=== PATIENT | male | born 1980 | race Caucasian/White ===

== ENCOUNTER 2016-09-04 17:08 | Observation (INO) | payer OTHER ==
[2016-09-04] MEDS ORDERED: TORAdol 30 mg Injection IV ONE (17:38)
[2016-09-04] MEDS ORDERED: Sodium Chloride 0.9% 1000 ML 1,000 ML IV STA (17:38)
--- NOTE | 2016-09-04 17:43 | ERPHSYRPT ---
- History of Present Illness Time Seen by Provider: 09/04/16 17:33 Historian: patient Exam Limitations: no limitations Patient Subjective Stated Complaint: PT COMPLAINS OF TESTTILCE PAIN AND SWELLING X 3 WEEKS STATES HE NOTICED SWELLING IN ON TESTICLE THEN SWELLING IN BOTH STATES HE DID HAVE SOME BLOOD IN HI URINE AT SOME POINT BUT DENIES ANY RECENTLY STATES NOW HE NOTICES BLOOD IN HIS SEMEN. PT DENIES ANY DISCHARGE STATES PAIN DOES RADIATE UP INTO HIS ABDOMEN. PT STATES HE DOES HAVE SOME NASUEA AT TIME. Triage Nursing Assessment: PT ALERT WARM AND DRY RESP EASY NONLABORED PT AMBUALATED TO ROOM WITHOUT DIFFICULTY. NO OBVIOUS SWELLING NOTED TO TESTICLES OR BLEEDING DURING EXAM. Physician History: 36-year-old white male arrives with complaint of pain in bilateral groin and testicle symptoms going on for 2-3 weeks he started with swelling and one testicle would then it began to involve the other testicle he described his pain as burning he states he has had some blood in his urine which has cleared he denies any discharge. Patient is not having nausea no vomiting he does have some dysuria Past medical history patient denies past surgical history patient denies Timing/Duration: week(s) (3 weeks) Activities at Onset: none Quality: burning Abdominal Pain Onset Location: other (bilateral groin and bilateral testicles) Severity of Pain-Max: moderate Severity of Pain-Current: moderate Modifying Factors: Improves With: nothing Associated Symptoms: testicular pain, other (bilateral groin pain), No back, No chest pain, No diaphoresis, No diarrhea, No fever/chills, No fatigue, No headache, No heartburn, No loss of appetite, No nausea, No neck pain, No rash, No shortness of breath, No syncope, No vomiting, No weakness Previous symptoms: no prior history Allergies/Adverse Reactions: No Known Drug Allergies Allergy (Unverified 09/04/16 17:17) Home Medications: No Reportable Medications [No Reported Medications] 09/04/16 [History] Hx Tetanus, Diphtheria Vaccination/Date Given: Yes Hx Influenza Vaccination/Date Given: No Hx Pneumococcal Vaccination/Date Given: No Immunizations Up to Date: Yes - Review of Systems Constitutional: No Fever, No Chills Eyes: No Symptoms Ears, Nose, & Throat: No Symptoms Respiratory: No Cough, No Dyspnea Cardiac: No Chest Pain, No Edema, No Syncope Abdominal/Gastrointestinal: Other (Bilateral groin pain), No Nausea, No Vomiting , No Diarrhea Genitourinary Symptoms: Dysuria, Hematuria (hematuria which has cleared up), No Frequency, No Hesitancy Musculoskeletal: No Back Pain, No Neck Pain Skin: No Rash Neurological: No Dizziness, No Focal Weakness, No Sensory Changes Psychological: No Symptoms Endocrine: No Symptoms All Other Systems: Reviewed and Negative - Past Medical History Pertinent Past Medical History: No - Past Surgical History Past Surgical History: No - Social History Smoking Status: Current every day smoker How long have you smoked: 16 YEARS Exposure to second hand smoke: Yes Drug Use: none Patient Lives Alone: No - Nursing Vital Signs Nursing Vital Signs: Initial Vital Signs Temperature 98.2 F Pulse Rate 88 Respiratory Rate 18 Blood Pressure [] 114/68 Pain Intensity 8 - Physical Exam General Appearance: mild distress Eye Exam: PERRL/EOMI, eyes nml inspection Ears, Nose, Throat Exam: normal ENT inspection, pharynx normal, moist mucous membranes Neck Exam: normal inspection, non-tender, supple, full range of motion Respiratory Exam: normal breath sounds, lungs clear, No respiratory distress Cardiovascular Exam: regular rate/rhythm, normal heart sounds Gastrointestinal/Abdomen Exam: normal bowel sounds, other (abdomen tender with palpation bilateral groin), No distention, No mass, No guarding Male Genitalia Exam: other (Testicles descended bilaterally tender with palpation superior to the testicles bilaterally) Back Exam: normal inspection, normal range of motion, No CVA tenderness, No vertebral tenderness Extremity Exam: normal inspection, normal range of motion, pelvis stable Neurologic Exam: alert, oriented x 3, cooperative, normal mood/affect, nml cerebellar function, sensation nml, No motor deficits Skin Exam: normal color, warm, dry SpO2 Interpretation: normal (98%) SpO2: 98 Oxygen Delivery: Room Air - Radiology Ultrasound Exam Scrotal Ultrasound: Other (discussed with photonics engineering technologist , severe orchitis and epididymitis bilaterally) Ordered Tests: Active Orders 24 hr Category Date Time Status IV Insertion STAT Care 09/04/16 17:38 Active TESTICLE [US] Stat Exams 09/04/16 17:55 Taken CBC W DIFF Stat Lab 09/04/16 17:45 Completed CMP Stat Lab 09/04/16 17:45 Completed CULTURE,URINE Stat Lab 09/04/16 19:22 Ordered UA W/ MICROSCOPIC Stat Lab 09/04/16 17:45 Completed Transfer Order Routine Transfer 09/04/16 20:32 Ordered Medication Summary Discontinued Medications Generic Name Dose Route Start Last Admin Trade Name Vahid PRN Reason Stop Dose Admin Sodium Chloride 1,000 mls @ 999 mls/hr 09/04/16 17:38 09/04/16 18:01 Sodium Chloride 0.9% 1000 Ml IV 09/04/16 18:38 999 mls/hr .Q1H1M STA Administration Sodium Chloride Confirm 09/04/16 17:58 Sodium Chloride 0.9% 1000 Ml Administered 09/04/16 17:59 Dose 1,000 mls @ ud .ROUTE .STK-MED ONE Ceftriaxone Sodium/Dextrose 1 g in 50 mls @ 100 mls/hr 09/04/16 19:45 20:01 Rocephin 1 Gm-D5w 50 Ml Bag IV 09/04/16 20:14 100 mls/hr STAT ONE Administration Ceftriaxone Sodium/Dextrose Confirm 09/04/16 20:00 Rocephin 1 Gm-D5w 50 Ml Bag Administered 09/04/16 20:01 Dose 1 g in 50 mls @ ud IV .STK-MED ONE Ketorolac Tromethamine 30 mg 09/04/16 17:38 09/04/16 18:01 Toradol 30 Mg Injection IV 09/04/16 17:39 30 mg STAT ONE Administration Ketorolac Tromethamine Confirm 09/04/16 17:58 Toradol 30 Mg Injection Administered 09/04/16 17:59 Dose 30 mg .ROUTE .STK-MED ONE Morphine Sulfate 4 mg 09/04/16 20:20 09/04/16 20:27 Morphine Sulfate 4 Mg Inj IV 09/04/16 20:21 4 mg STAT ONE Administration Morphine Sulfate Confirm 09/04/16 20:23 Morphine Sulfate 4 Mg Inj Administered 09/04/16 20:24 Dose 4 mg .ROUTE .STK-MED ONE Lab/Rad Data: Laboratory Result Diagrams 09/04/16 17:45 09/04/16 17:45 Laboratory Results 09/04/16 09/04/16 09/04/16 Range/Units 17:45 17:45 17:45 WBC 9.9 (4.0-10.5) K/mm3 RBC 4.38 (4.1-5.6) M/mm3 Hgb 13.5 (12.5-18.0) gm/dl Hct 40.2 L (42-50) % MCV 91.8 (78-100) fl MCH 30.8 (26-32) pg MCHC 33.6 (32-36) g/dl RDW 13.7 (11.5-14.0) % Plt Count 236 (150-450) K/mm3 MPV 10.3 H (6-9.5) fl Gran % 67.9 H (36.0-66.0) % Lymphocytes % 22.8 L (24.0-44.0) % Monocytes % 8.0 (0.0-12.0) % Eosinophils % 1.2 (0.00-5.0) % Basophils % 0.1 (0.0-0.4) % Basophils # 0.01 (0-0.4) Sodium 142 (136-145) mEq/L Potassium 3.9 (3.5-5.1) mEq/L Chloride 106 (98-107) mEq/L Carbon Dioxide 27.1 (21-32) mEq/L Anion Gap 13.1 (5-15) MEQ/L BUN 8 L (9-20) mg/dL Creatinine 0.72 (0.55-1.30) mg/dl Estimated GFR > 60 ML/MIN Glucose 113 H (70-110) MG/DL Calcium 9.0 (8.5-10.1) mg/dL Total Bilirubin 0.2 (0.2-1.0) mg/dL AST 14 L (15-37) U/L ALT 18 (12-78) U/L Alkaline Phosphatase 101 (46-116) U/L Serum Total Protein 7.3 (6.4-8.2) gm/dL Albumin 3.4 (3.4-5.0) g/dL Ur Collection Type CLEAN CATCH Urine Color YELLOW (YELLOW) Urine Appearance SLIGHTLY CLOUDY (CLEAR) Urine pH 7.0 (5-6) Ur Specific Bradford 1.020 (1.005-1.025) Urine Protein NEGATIVE (Negative) Urine Glucose (UA) NEGATIVE (NEGATIVE) mg/dL Urine Ketones NEGATIVE (NEGATIVE) Urine Nitrite POSITIVE (NEGATIVE) Urine Bilirubin NEGATIVE (NEGATIVE) Urine Urobilinogen 0.2 (0-1) mg/dL Urine WBC (Auto) SMALL (NEGATIVE) Urine RBC (Auto) NEGATIVE (0-5) Jelani/ul Urine Microscopic RBC 0-2 (0-2) /HPF Urine Microscopic WBC 15-25 (0-5) /HPF Ur Epithelial Cells MODERATE (FEW) /HPF Specimen Received [id number] - Progress Progress: improved Progress Note: 09/04/16 19:24 Patient with orchitis and epididymitis on ultrasound. Radiology techs states this is quite an impressive case Patient with mild improvement with Toradol. Will give patient antibiotics discuss case with Dr. garcía for possible admission 09/04/16 19:45 I discussed case with Dr. garcía for possible admission. She would like the room to read the ultrasound on this patient. 09/04/16 20:18 Scrotal ultrasound read by the virtual radiology: Impression bilateral epididymorchitis. 09/04/16 20:30 Case is discussed with Dr. garcía Will place patient on observation IV fluids Rocephin. - Departure Time of Disposition: 20:31 Departure Disposition: Observation Clinical Impression: bilateral testicle pain, Orchitis, Epididymitis Condition: Fair Critical Care Time: No Referrals: YUMIKO GARCÍA [Primary Care Provider] -
[2016-09-04 17:56] LABS: BASOPHIL % 0.1 % (0.0-0.4); Eosinophil % 1.2 % (0.00-5.0); Granulocytes % 67.9 % (36.0-66.0); Lymphocytes % 22.8 % (24.0-44.0); Mean Cell Volume 91.8 fl (78-100); Mean Corpuscular Hemoglobin 30.8 pg (26-32); Mean Platelet Volume 10.3 fl (6-9.5); Platelet Count 236 K/mm3 (150-450); Red Blood Count 4.38 M/mm3 (4.1-5.6); Red Cell Distribution Width 13.7 % (11.5-14.0); White Blood Count 9.9 K/mm3 (4.0-10.5)
[2016-09-04] MEDS ORDERED: Sodium Chloride 0.9% 1000 ML 1,000 ML ONE (17:58)
[2016-09-04] MEDS ORDERED: TORAdol 30 mg Injection ONE (17:58)
[2016-09-04 18:21] LABS: ALBUMIN 3.4 g/dL (3.4-5.0); ALKALINE PHOSPHATASE 101 U/L (46-116); ANION GAP 13.1 MEQ/L (5-15); BILIRUBIN,TOTAL 0.2 mg/dL (0.2-1.0); BLOOD UREA NITROGEN 8 mg/dL (9-20); CHLORIDE 106 mEq/L (98-107); Carbon Dioxide 27.1 mEq/L (21-32); Glucose 113 MG/DL (70-110); Potassium 3.9 mEq/L (3.5-5.1); SGOT/AST 14 U/L (15-37); SGPT/ALT 18 U/L (12-78); SODIUM 142 mEq/L (136-145); Total Protein 7.3 gm/dL (6.4-8.2)
[2016-09-04 19:06] LABS: Collection Type CLEAN CATCH
[2016-09-04 19:07] LABS: COMPLETE URINE MICROSCOPIC? YES; Epithelial Cells MODERATE /HPF (FEW); WBC 15-25 /HPF (0-5)
[2016-09-04] MEDS ORDERED: ROCEPHIN 1 Gm-D5w 50 ml Bag** 1 G/50 ML IVPB IV ONE ×2 (19:45→20:00)
[2016-09-04] MEDS ORDERED: MORPHINE SULFATE 4 MG INJ IV ONE (20:20)
[2016-09-04] MEDS ORDERED: MORPHINE SULFATE 4 MG INJ ONE (20:23)
[2016-09-04] MEDS ORDERED: Zofran 4 MG/2 ML VIAL IV PRN (21:46)
[2016-09-04] MEDS ORDERED: Sodium Chloride 0.9% 1000 ML 1,000 ML IV SCH (21:46)
--- NOTE | 2016-09-04 21:48 | XRAY ---
Indication: Bilateral testicular pain for 3 weeks. Two-dimensional testicle sonogram performed. Comparison: None Right testicle measures 3.6 x 1.9 x 2.1 cm and the left measures 3.3 x 1.9 x 2.2 cm. Right testicle demonstrates several heterogeneous echogenicity. No suspicious solid/cystic testicular mass. Both testicles demonstrates hyperemic color Doppler flow. Right epididymis measures 0.9 cm and the left measures 1.2 cm. Both epididymis also demonstrates hyperemic color flow. Mild/moderate bilateral hydroceles. Impression: Bilateral testicular and epididymal hyperemic color flow favoring epididymoorchitis. Bilateral reactive hydrocele. Comment: Preliminary interpretation was made by [facility]. No discrepancy.
[2016-09-04] MEDS ORDERED: Zithromax 500 MG/ 250 ML NaCl Premix 250 ML IV ONE (23:20)
[2016-09-05] MEDS: MORPHINE SULFATE 4 MG INJ IV PRN ×5 (00:50→23:08)
[2016-09-05] MEDS: TORAdol 30 mg Injection IV PRN ×3 (05:51→19:58)
[2016-09-05 05:58] LABS: BASOPHIL % 0.2 % (0.0-0.4); Eosinophil % 1.9 % (0.00-5.0); Granulocytes % 65.5 % (36.0-66.0); Lymphocytes % 23.1 % (24.0-44.0); Mean Cell Volume 92.4 fl (78-100); Mean Platelet Volume 10.8 fl (6-9.5); Monocytes % 9.3 % (0.0-12.0); Platelet Count 232 K/mm3 (150-450); Red Blood Count 4.06 M/mm3 (4.1-5.6); Red Cell Distribution Width 13.8 % (11.5-14.0); White Blood Count 12.5 K/mm3 (4.0-10.5)
[2016-09-05 06:35] LABS: Mean Corpuscular Hemoglobin 30.7 pg (26-32)
[2016-09-05 07:10] LABS: ALBUMIN 3.2 g/dL (3.4-5.0); ALKALINE PHOSPHATASE 91 U/L (46-116); ANION GAP 13.1 MEQ/L (5-15); BILIRUBIN,TOTAL 0.2 mg/dL (0.2-1.0); BLOOD UREA NITROGEN 5 mg/dL (9-20); CHLORIDE 108 mEq/L (98-107); Carbon Dioxide 25.2 mEq/L (21-32); Glucose 98 MG/DL (70-110); Potassium 3.8 mEq/L (3.5-5.1); SGOT/AST 21 U/L (15-37); SGPT/ALT 19 U/L (12-78); SODIUM 143 mEq/L (136-145); Total Protein 6.7 gm/dL (6.4-8.2)
[2016-09-05] MEDS ORDERED: Zithromax 500 MG/ 250 ML NaCl Premix 250 ML IV SCH ×2 (10:00→22:00)
[2016-09-05] MEDS: Dextrose 5% -0.45 NaCl 1000 ML 1,000 ML IV SCH ×2 (10:52→23:14)
--- NOTE | 2016-09-05 16:05 | HP ---
HISTORY OF PRESENT ILLNESS: This is a 36 y/o man who presented to the Emergency Department. He reports 3 weeks ago he started having burning with urination and blood in his urine. He reports a history of urinary tract infections 2-3 times a year. He started drinking cranberry juice and taking Azo. He also noticed blood in his sperm. He reports first his right testicle starting hurting and then both sides and the testicle started hurting about 2 weeks ago and the pain go worse over the past week and then extremely bad over the past 2 days. He reports that he hadn't had any blood in his urine or dysuria for about a week and then started having dysuria again yesterday. He states the pain medications help and when he gets the IV morphine that helps for 1-2 hours. REVIEW OF SYSTEMS: He denies fever. He has nausea from the pain. No vomiting. No diarrhea. No constipation. No rashes. No lower extremity edema. He reports he has his usual cough. He reports his weight has fluctuated 5-10 pounds over the past 2 weeks. PAST MEDICAL HISTORY: Anxiety which he used to follow-up with [facility] for, but lost his insurance at one point and so hasn't followed up there. PAST SURGICAL HISTORY: None. SOCIAL HISTORY: He smokes 1/2 pack per day. He smokes marijuana occasionally. He lives with his and 3 children. He denies any alcohol use. FAMILY HISTORY: His mother has heart problems, arthritis, and chronic obstructive pulmonary disease. His father has diabetes, heart problems, and strokes. CURRENT MEDICATIONS: None. ALLERGIES: NKDA. PHYSICAL EXAMINATION: VITAL SIGNS: Temperature current 98, temperature maximum 98.5, heart rate 48-88, currently 64, respirations 16-20, O2 saturation 97-98% on room air, BP 114-156/68-73, weight is 57.3 Kg. GENERAL: The patient is lying in bed a pleasant talkative man in no acute distress. CVS: He has a regular rate and rhythm. No murmurs, gallops, or rubs. CHEST: Clear to auscultation bilaterally. No crackles or wheezes. ABDOMEN: Soft with mild tenderness in the lower quadrants. Normal bowel sounds. No guarding. No rigidity. EXTREMITIES: No clubbing, cyanosis, or edema. Nurse Amirah was present for the genital exam. He has swelling more marked on the left side around his scrotum and testicle. Both testicles are tender to touch. No active drainage from his penis. LABORATORY DATA: On admission, his WBC was 9.9. It is 12.5 this AM. Chloride was 108 this AM. Albumin 3.2. UA was positive for nitrites, had 15-25 WBC, 0-2 RBC. He had an US done of his testicles that was read as bilateral testicular epididymal hyperemic color flow favoring epididymooorchitis reactive bilateral hydrocele. Please see the radiologist's dictation for the full report. There was no torsion seen. ASSESSMENT AND PLAN: 1. BILATERAL EPIDIDYMOORCHITIS. He has been started on ceftriaxone and azithromycin. Will continue with these. He has a urine culture in lab. Will check a high risk profile which includes sexually transmitted infections. Will continue with pain control with morphine, Toradol, and Tylenol. 2. TOBACCO ABUSE. The patient denies needing a nicotine patch. 3. ILLICIT DRUG USE. The patient was encouraged to quit. He states he does not plan to quit. 4. HISTORY OF ANXIETY CURRENTLY CONTROLLED.
[2016-09-05] MEDS: TYLENOL 325 MG PO PRN (18:55)
[2016-09-05 19:15] LABS: CHLAMYDIA URINE POSITIVE; GC URINE NEGATIVE
[2016-09-05] MEDS ORDERED: ROCEPHIN 1 Gm-D5w 50 ml Bag** 1 G/50 ML IVPB IV SCH (22:00)
[2016-09-06] MEDS: TORAdol 30 mg Injection IV PRN (03:45)
[2016-09-06 05:56] LABS: BASOPHIL % 0.3 % (0.0-0.4); Eosinophil % 2.8 % (0.00-5.0); Granulocytes % 65.3 % (36.0-66.0); Lymphocytes % 20.4 % (24.0-44.0); Mean Cell Volume 91.9 fl (78-100); Mean Corpuscular Hemoglobin 30.6 pg (26-32); Mean Platelet Volume 10.6 fl (6-9.5); Monocytes % 11.2 % (0.0-12.0); Platelet Count 239 K/mm3 (150-450); Red Blood Count 4.21 M/mm3 (4.1-5.6); Red Cell Distribution Width 13.7 % (11.5-14.0); White Blood Count 9.9 K/mm3 (4.0-10.5)
[2016-09-06 06:16] LABS: BLOOD UREA NITROGEN 7 mg/dL (9-20); CHLORIDE 105 mEq/L (98-107); Carbon Dioxide 27.9 mEq/L (21-32); Glucose 107 MG/DL (70-110); Potassium 3.9 mEq/L (3.5-5.1); SODIUM 140 mEq/L (136-145)
[2016-09-06] MEDS: MORPHINE SULFATE 4 MG INJ IV PRN (08:07)
[2016-09-06] MEDS ORDERED: NORCO 5/325 MG PO PRN (10:50)
[2016-09-06 12:19] VITALS: BP 135/59; PULSE 97; O2SAT 97
--- NOTE | 2016-09-06 12:47 | PCM.DCORD ---
- Discharge Discharge Date: 09/06/16 Disposition: Home, Self-Care Condition: Good Prescriptions: New Cefdinir 300 mg PO BID #14 capsule Hydrocodone Bit/Acetaminophen [Hydrocodon-Acetaminophen 5-325] 1 each PO Q4H PRN #15 tablet PRN Reason: Moderate To Severe Pain Doxycycline Hyclate 100 mg [Vibramycin 100 MG] 100 mg PO BID #20 tab Instructions: Chlamydia, Epididymitis, Urinary Tract Infection (UTI), Testicular Pain Follow up with: YUMIKO MEEHAN [Primary Care Provider] - Forms: Discharge Instructions
[2016-09-06] MEDS: TYLENOL 325 MG PO PRN (13:15)
[2016-09-06] MEDS ORDERED: Vibramycin 100 MG PO SCH (22:00)
--- NOTE | 2016-09-07 10:02 | DS ---
DISCHARGE DIAGNOSES: 1) EPIDIDYMO-ORCHITIS. 2) CHLAMYDIA. 3) TOBACCO USE. 4) ILLICIT DRUG USE. 5) HISTORY OF ANXIETY. DISCHARGE PHYSICAL EXAMINATION: VITALS: Temperature current 98.2F, temperature max 98.5F, heart rate 49 to 97, respiratory rate 18 to 20, blood pressure 109 to 143 over 59 to 74. Oxygen saturation 97 to 98% on room air. GENERAL: The patient is a pleasant talkative man sitting up in bed in no acute distress. CVS: He has a regular rate and rhythm. No murmurs, gallops or rubs are appreciated. CHEST: Clear to auscultation bilaterally. No crackles or wheezes. ABDOMEN: Soft, nontender, nondistended with normal bowel sounds. : Nurse Deyanira was present for the physical exam. He has erythema of both testicles with more swelling on the left side and tenderness to testicles as well as the epididymis bilaterally. EXTREMITIES: No clubbing, cyanosis or edema. HOSPITAL COURSE: 1) EPIDIDYMO-ORCHITIS: He was started on ceftriaxone and azithromycin IV. He had a urine culture sent that is now growing gram negative with ID and sensitivity pending. He reports his pain is improved. We were able to try oral hydrocodone 5/325 mg today in the hospital and he tolerated this well, will plan to discharge him home with pain control with hydrocodone. He was carefully instructed that he is not share his medications with anyone. He needs to keep it in a safe place. I do not replace lost or stolen prescriptions or medications if this is for short term for the pain he is experiencing now, that he should not be driving and he should not be using marijuana while he is taking this and that he should not be using marijuana in general. I am going to discharge him home on doxycycline 100 mg p.o. b.i.d for ten days and Cefdinir 300 mg p.o. b.i.d. for seven days. I will have him follow up with myself in the clinic this coming week. 2) CHLAMYDIA: The patient was given his results of his Chlamydia test and instructed that he needs to alert his sexual partners so they can be treated, too. 3) TOBACCO ABUSE: The patient was counseled that he needs to quit smoking. 4) ILLICIT DRUG USE: The patient was counseled that he should stop smoking marijuana. 5) HISTORY OF ANXIETY: This was well controlled during his hospitalization. DISCHARGE MEDICATIONS: Hydrocodone as above. Cefdinir, doxycycline as above. FOLLOW UP: He is to follow up with me this week. DISPOSITION: The patient was discharged to home.
[2016-09-07 10:14] LABS: Hepatits C Antibody by EIA Non Reactive (Non Reactive)
[2016-09-07 15:26] LABS: Hepatitis B Surface Ab.Quant <3.50 mIU/mL (0.00-8.49); Hepatits B Sur Ag Screen Non Reactive (Non Reactive)
== END 2016-09-06 13:47 | disposition home or self-care (01) ==
LOC: ED 17:08 → MED SURG 21:45
PROVIDERS: ADMIT Internal Medicine; ATTEND Internal Medicine
DX: N45.3 Epididymo-orchitis (principal); A74.9 Chlamydial infection, unspecified; Z72.0 Tobacco use; F19.90 Other psychoactive substance use, unspecified, uncomplicated; F41.9 Anxiety disorder, unspecified
CPT/HCPCS: 36000; 36415; 76870; 80048; 80053; 81000; 85025; 86317; 86592; 86701; 86702; 86803; 87077; 87086; 87186; 87340; 87389; 87491; 87591; 96360; 96365; 96374; 96375; 99285; G0378; J0456; J0696; J1885; J2270; A9270-GY

== ENCOUNTER 2021-02-22 14:03 | Emergency (ER) | payer OTHER ==
[2021-02-22 14:14] VITALS: BP 133/73; PULSE 87; O2SAT 98
[2021-02-22] MEDS ORDERED: CLEOCIN 150 MG CAPSULE PO ONE (14:28)
[2021-02-22] MEDS ORDERED: MOTRIN 600 MG PO ONE (14:29)
[2021-02-22] MEDS ORDERED: CLEOCIN 150 MG CAPSULE ONE (14:33)
[2021-02-22] MEDS ORDERED: MOTRIN 600 MG ONE (14:33)
--- NOTE | 2021-02-22 14:35 | ERPHSYRPT ---
- History of Present Illness Time Seen by Provider: 02/22/21 14:05 Source: patient Exam Limitations: no limitations Patient Subjective Stated Complaint: Pt states "About a week ago I had a lump in the ear and it got bigger, I went to the doctory and was given keflex and I have taken that for 6 days and it is not any better." Triage Nursing Assessment: Pt presented alert and oriented X 3, skin pwd Pt ambulates with an upright steady gait, able to speak in clear full sentences pt in no apparent respiratory distress. pt right priya swollen, red, tender. Physician History: 41 years old healthy male presented to the ER with chief complaint of swelling right earlobe which started almost a week ago, was evaluated at primary care and currently on Keflex with no significant relief. Patient reports dull aching to sharp pain moderate intensity with palpation and mild pain all the time without any discharge. Denies any trauma to the right ear. Does not report ear piercing or any instrumentation but did try to drain it on its own at home but was not successful. No fever or chills reported. No ear discharge. Timing/Duration: abrupt onset, weeks (1) Severity: moderate ENT Location: ear (R) Prearrival Treatment: prescription meds Associated Symptoms: ear pain (R), No fever, No ear drainage, No facial pain/swelling, No ringing of ears, No swollen glands Allergies/Adverse Reactions: No Known Drug Allergies Allergy (Verified 02/22/21 14:12) Home Medications: Cephalexin Mh 500 mg [Keflex 500 mg] 500 mg PO BID 02/22/21 [History] Hx Tetanus, Diphtheria Vaccination/Date Given: Yes Hx Influenza Vaccination/Date Given: Yes Hx Pneumococcal Vaccination/Date Given: No Immunizations Up to Date: Yes Travel Risk - International Travel Have you traveled outside of the country in past 3 weeks: No - Coronavirus Screening Are you exhibiting any of the following symptoms?: No Close contact with a COVID-19 positive Pt in past 14-21 Days: No - Vaccine Status Have you recieved a Covid-19 vaccination: No - Review of Systems Constitutional: No Symptoms Eyes: No Symptoms Ears, Nose, & Throat: Ear Pain, No Ear Discharge, No Hearing Changes Respiratory: No Symptoms Cardiac: No Symptoms Abdominal/Gastrointestinal: No Symptoms Musculoskeletal: No Symptoms Skin: No Symptoms Neurological: No Symptoms Psychological: No Symptoms Endocrine: No Symptoms - Past Medical History Pertinent Past Medical History: Yes Neurological History: Migraines ENT History: No Pertinent History Cardiac History: No Pertinent History Respiratory History: No Pertinent History Endocrine Medical History: No Pertinent History Musculoskeletal History: No Pertinent History GI Medical History: No Pertinent History History: Other Psycho-Social History: Depression Male Reproductive Disorders: No Pertinent History Other Medical History: recently dx with HPV virus - Past Surgical History Past Surgical History: Yes Other Surgical History: never been put under ortho surg to finger but done with block - Social History Smoking Status: Current every day smoker How long have you smoked: years Exposure to second hand smoke: Yes Drug Use: marijuana Patient Lives Alone: Yes - Nursing Vital Signs Nursing Vital Signs: Initial Vital Signs Temperature 98.7 F 02/22/21 14:08 Pulse Rate 87 02/22/21 14:08 Respiratory Rate 20 02/22/21 14:08 Blood Pressure 133/73 02/22/21 14:08 O2 Sat by Pulse Oximetry 98 02/22/21 14:08 Pain Scale Pain Intensity 6 - Physical Exam General Appearance: no apparent distress, alert Eye Exam: bilateral eye: normal inspection, PERRL, EOMI Ear Exam: right ear: swelling (Swelling external ear in the antihelix area. Soft, minimal tenderness. Fluctuant.), left ear: auricle normal, bilateral ear: canal normal, TM normal Nasal Exam: normal inspection Throat Exam: normal, pharynx normal Neck Exam: normal inspection, non-tender, supple, full range of motion Cardiovascular/Respiratory Exam: normal breath sounds, regular rate/rhythm Neurologic Exam: alert, oriented x 3, cooperative Skin Exam: normal color SpO2 Interpretation: normal SpO2: 98 O2 Delivery: Room Air Ordered Tests: Medication Summary Discontinued Medications Generic Name Dose Route Start Last Admin Trade Name Freq PRN Reason Stop Dose Admin Clindamycin HCl 300 mg 02/22/21 14:28 Clindamycin Hcl 150 Mg Capsule PO 02/22/21 14:29 STAT ONE - Progress Progress: improved Progress Note: 02/22/21 14:34 Procedure note. Under aseptic measures drainage of swelling right ear done with 4 cc serosanguineous fluid drained. Swelling improved. Given ibuprofen and started on clindamycin. Outpatient follow-up. Tight dressing recommended to avoid recurrence. Counseled pt/family regarding: diagnosis, need for follow-up - Departure Departure Disposition: Home Clinical Impression: Swelling of right external ear Condition: Stable Critical Care Time: No Referrals: MANAV SIMMS [Primary Care Provider] - Follow Up with PCP/3 days Instructions: Skin Abscess Additional Instructions: Apply tight dressing. Take Tylenol/ibuprofen as needed. Continue with antibiotics. Follow-up with primary care for reevaluation early next week. Return to ER for increasing pain swelling redness/fever chills etc. Prescriptions: Ibuprofen 600 mg PO Q6HPRN PRN 10 Days #20 tablet PRN Reason: Pain Clindamycin HCl 150 mg [Cleocin 150 mg Capsule] 2 cap PO QID #56 cap
== END 2021-02-22 14:53 | disposition home or self-care (01) ==
LOC: ED 14:03
DX: H93.8X1 Other specified disorders of right ear (principal); H92.01 Otalgia, right ear
CPT/HCPCS: 87070; 99283; A9270-GY

== ENCOUNTER 2021-03-11 07:25 | Emergency (ER) | payer OTHER ==
--- NOTE | 2021-03-11 07:53 | ERPHSYRPT ---
- History of Present Illness Time Seen by Provider: 03/11/21 07:40 Source: patient Exam Limitations: no limitations Patient Subjective Stated Complaint: Sore throat Triage Nursing Assessment: Patient ambulated back to ED and transferred self to bed. Patient A+O X3. Patient's skin pink, warm and dry. Patient complains of sore throat for one week 07/03. Patient also complains of non productive cough for one week also. Patient states his was seen yesterday in ER and dx with strep throat. Throat noted to be red. Physician History: This is a 41-year-old white male who presents with a sore throat for 1 week. Patient states that it has gradually worsened. He has a mild cough associated with it. He denies fever. His was diagnosed yesterday with strep strep pharyngitis. Patient is concerned that he may have the same diagnosis since his symptoms of the same and are worsening. He denies chest pain. He denies shortness of breath. Timing/Duration: gradual onset, weeks Severity: mild (1 to moderate) ENT Location: throat Prearrival Treatment: no prearrival treatment Modifying Factors: Improves With: coughing Associated Symptoms: cough, sore throat Allergies/Adverse Reactions: No Known Drug Allergies Allergy (Verified 03/11/21 07:29) Hx Tetanus, Diphtheria Vaccination/Date Given: Yes Hx Influenza Vaccination/Date Given: No Hx Pneumococcal Vaccination/Date Given: No Immunizations Up to Date: Yes Travel Risk - International Travel Have you traveled outside of the country in past 3 weeks: No - Coronavirus Screening Are you exhibiting any of the following symptoms?: No Close contact with a COVID-19 positive Pt in past 14-21 Days: No - Vaccine Status Have you recieved a Covid-19 vaccination: No - Review of Systems Constitutional: No Symptoms Eyes: No Symptoms Ears, Nose, & Throat: Throat Pain Respiratory: Cough Cardiac: No Symptoms Abdominal/Gastrointestinal: No Symptoms Genitourinary Symptoms: No Symptoms Musculoskeletal: No Symptoms Skin: No Symptoms Neurological: No Symptoms Psychological: No Symptoms Endocrine: No Symptoms Hematologic/Lymphatic: No Symptoms Immunological/Allergic: No Symptoms All Other Systems: Reviewed and Negative - Past Medical History Pertinent Past Medical History: Yes Neurological History: Migraines ENT History: No Pertinent History Cardiac History: No Pertinent History Respiratory History: No Pertinent History Endocrine Medical History: No Pertinent History Musculoskeletal History: No Pertinent History GI Medical History: No Pertinent History History: Other Psycho-Social History: Depression Male Reproductive Disorders: No Pertinent History Other Medical History: recently dx with HPV virus - Past Surgical History Past Surgical History: Yes Other Surgical History: never been put under ortho surg to finger but done with block - Social History Smoking Status: Current every day smoker How long have you smoked: years Exposure to second hand smoke: No Drug Use: none Patient Lives Alone: No - Nursing Vital Signs Nursing Vital Signs: Initial Vital Signs Temperature 98.3 F 03/11/21 07:30 Pulse Rate 70 03/11/21 07:30 Respiratory Rate 18 03/11/21 07:30 Blood Pressure 122/74 03/11/21 07:30 O2 Sat by Pulse Oximetry 98 03/11/21 07:30 Pain Scale Pain Intensity 3 - Physical Exam General Appearance: no apparent distress, alert, anxiety Eye Exam: bilateral eye: normal inspection, PERRL, EOMI Ear Exam: bilateral ear: auricle normal, canal normal, TM normal Nasal Exam: normal inspection Throat Exam: moist mucus membranes, pharynx tenderness (Mild redness) Neck Exam: normal inspection, non-tender, supple, full range of motion, trachea midline Cardiovascular/Respiratory Exam: chest non-tender, no respiratory distress Abdominal Exam: non-tender Neurologic Exam: alert, oriented x 3, cooperative, 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 Take your medications as prescribed. Follow-up with your primary care physician for further management. Prescriptions: Hydrocodone/Acetaminophen [Hydrocodone-Acetamn 7.5-325/15] 10 ml PO Q8H PRN PRN #120 ml MDD 30 ml PRN Reason: Cough Prednisone 10 mg [Deltasone 10 mg] 10 mg PO TID #12 tablet Azithromycin 250 mg [Zithromax 250 MG TABLET] 250 mg PO ZPACK #6 tablet
== END 2021-03-11 08:15 | disposition home or self-care (01) ==
LOC: ED 07:25
DX: J02.9 Acute pharyngitis, unspecified (principal); R05.9 Cough, unspecified; Z72.0 Tobacco use
CPT/HCPCS: 99283

== ENCOUNTER 2021-04-29 10:20 | Emergency (ER) | payer OTHER ==
--- NOTE | 2021-04-29 10:51 | ERPHSYRPT ---
- History of Present Illness Time Seen by Provider: 04/29/21 10:36 Source: patient Exam Limitations: no limitations Patient Subjective Stated Complaint: Right sided shoulder pain Triage Nursing Assessment: Patient ambulated back to ED and transferred self to bed. Patient A+O X3. Patient's skin pink, warm and dry. Patient complains of constant aching right shoulder pain 5/10 for the past 5 days. Patient denies injury to area. No visible injuries or bruising noted. 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, does construction) Quality: intermittent Severity of Pain-Max: moderate Severity of Pain-Current: moderate Extremities Pain Location: shoulder: right Modifying Factors: Improves With: movement (worsens) Associated Symptoms: none Allergies/Adverse Reactions: No Known Drug Allergies Allergy (Verified 04/29/21 10:23) Hx Tetanus, Diphtheria Vaccination/Date Given: Yes Hx Influenza Vaccination/Date Given: No Hx Pneumococcal Vaccination/Date Given: No Immunizations Up to Date: Yes Travel Risk - International Travel Have you traveled outside of the country in past 3 weeks: No - Coronavirus Screening Are you exhibiting any of the following symptoms?: No Close contact with a COVID-19 positive Pt in past 14-21 Days: No - Vaccine Status Have you recieved a Covid-19 vaccination: No - Review of Systems Constitutional: No Symptoms Eyes: No Symptoms Ears, Nose, & Throat: No Symptoms Respiratory: No Symptoms Cardiac: No Symptoms Abdominal/Gastrointestinal: No Symptoms Genitourinary Symptoms: No Symptoms Musculoskeletal: No Symptoms Skin: No Symptoms Neurological: No Symptoms Psychological: No Symptoms Endocrine: No Symptoms Hematologic/Lymphatic: No Symptoms Immunological/Allergic: No Symptoms All Other Systems: Reviewed and Negative - Past Medical History Pertinent Past Medical History: Yes Neurological History: Migraines ENT History: No Pertinent History Cardiac History: No Pertinent History Respiratory History: No Pertinent History Endocrine Medical History: No Pertinent History Musculoskeletal History: No Pertinent History GI Medical History: No Pertinent History History: Other Psycho-Social History: Depression Male Reproductive Disorders: No Pertinent History Other Medical History: recently dx with HPV virus - Past Surgical History Past Surgical History: Yes Other Surgical History: never been put under ortho surg to finger but done with block - Social History Smoking Status: Current every day smoker How long have you smoked: years Exposure to second hand smoke: Yes Drug Use: none Patient Lives Alone: Yes Significant Family History: no pertinent family hx - Nursing Vital Signs Nursing Vital Signs: Initial Vital Signs Temperature 97.2 F 04/29/21 10:25 Pulse Rate 74 04/29/21 10:25 Respiratory Rate 18 04/29/21 10:25 Blood Pressure 127/79 04/29/21 10:25 O2 Sat by Pulse Oximetry 98 04/29/21 10:25 Pain Scale Pain Intensity 8 - Physical Exam General Appearance: no apparent distress, alert Eyes, Ears, Nose, Throat Exam: normal ENT inspection Neck Exam: normal inspection Cardiovascular/Respiratory Exam: chest non-tender, normal breath sounds, regular rate/rhythm, heart sounds normal Back Exam: normal inspection, normal range of motion Elbow/Forearm Exam: normal inspection, bone tenderness (right shoulder joint area TTP with reduced ROM, NVI), limited ROM, pain Wrist Exam: normal inspection, non-tender Hand Exam: normal inspection, non-tender Neuro/Tendon Exam: normal sensation, normal motor functions Mental Status Exam: alert, oriented x 3, cooperative Skin Exam: normal color SpO2 Interpretation: normal SpO2: 98 O2 Delivery: Room Air - Course Nursing assessment & vital signs reviewed: Yes - Radiology Exams Right Shoulder X-ray Interpretation: Reviewed by me, Negative, No Fracture, No Subluxation - Progress Progress: unchanged Progress Note: 04/29/21 11:12 Right shoulder pain with repeated lifting at work, dx tendonitis, Rx NSAID, light duty, recheck in few days with PCP or orthopedist. Counseled pt/family regarding: diagnosis, need for follow-up, rad results - Departure Departure Disposition: Home Clinical Impression: Right shoulder tendonitis Condition: Stable Critical Care Time: No Referrals: MANAV SIMMS [Primary Care Provider] - Follow up/PCP as directed Instructions: Shoulder Tendinopathy (DC) Additional Instructions: Limit use of shoulder for now as needed, try the medication, recheck with your PCP or an orthopedic Dr. Forms: Work/School Release Form Prescriptions: Naproxen 500 mg [Naprosyn 500 MG] 500 mg PO BIDPRN PRN #30 tablet PRN Reason: Pain
--- NOTE | 2021-04-29 11:01 | XRAY ---
Indication: Pain. No known injury. Comparison: None 3 view right shoulder demonstrates mild AC degenerative arthropathy and a few tiny right lung calcified granulomas. No other bony, articular, or soft tissue abnormalities.
[2021-04-29 11:30] VITALS: BP 114/77; PULSE 73; O2SAT 97
== END 2021-04-29 11:30 | disposition home or self-care (01) ==
LOC: ED 10:20
DX: M70.811 Other soft tissue disorders related to use, overuse and pressure, right shoulder (principal); X50.3XXA Overexertion from repetitive movements, initial encounter; Y93.H3 Activity, building and construction; Y99.0 Civilian activity done for income or pay; Z72.0 Tobacco use
CPT/HCPCS: 73030; 99283

== ENCOUNTER 2022-05-07 07:37 | Emergency (ER) | payer OTHER ==
[2022-05-07] MEDS ORDERED: TORAdol 30 mg Injection IM ONE (08:07)
[2022-05-07] MEDS ORDERED: TORAdol 30 mg Injection ONE (08:43)
--- NOTE | 2022-05-07 08:49 | XRAY ---
Indication: Pain following injury. Comparison: None 3 view right ankle demonstrates tiny heel spurs. No other bony, articular, or soft tissue abnormalities.
--- NOTE | 2022-05-07 08:49 | XRAY ---
Indication: Pain following injury. Comparison: None 3 view right knee obtained. No bony, articular, or soft tissue abnormalities.
--- NOTE | 2022-05-07 09:02 | ERPHSYRPT ---
- History of Present Illness Time Seen by Provider: 05/07/22 07:43 Source: patient Exam Limitations: no limitations Patient Subjective Stated Complaint: R knee and ankle injury that occurred 05/06 @ 0900 Triage Nursing Assessment: Patient arrives to ER ambulatory, but with difficulty. Ambulates to bed 8 with limp. Placed on monitor. C/o injury that occurred yesterday morning at 0900 at work at [employer]. States will be work comp. C/o injury to right knee and ankle. States pain to medial knee and lateral ankle. Slight swelling noted to both areas. Limited ROM to both joints d/t pain. Reports pain 5/10 when still, worse when up moving. No open areas noted to ankle or foot. Pedal pulse 2+. Skin PWD. Cap refill <3 seconds to nail beds of left foot. Pt is A &OX3, answers questions appropriately. Physician History: 42 years old male presented in the ER with chief complaint of right knee and ankle pain obscurity got pinned between cow head an metal pole, twisted his old right lower leg and ankle. Patient works at a [employer]. Since then having increasing pain with ambulation and mild swelling. Method of Injury: direct blow, twisted Occurred: yesterday Quality: sharpness Severity of Pain-Max: moderate Severity of Pain-Current: moderate Lower Extremities Pain: knee: right, ankle: right Modifying Factors: Improves With: immobilization. Worsens With: movement Associated Symptoms: none Allergies/Adverse Reactions: No Known Drug Allergies Allergy (Verified 05/07/22 07:57) Home Medications: No Reportable Medications [No Reported Medications] 12/26/21 [History] Hx Tetanus, Diphtheria Vaccination/Date Given: Yes Hx Influenza Vaccination/Date Given: No Hx Pneumococcal Vaccination/Date Given: No Travel Risk - International Travel Have you traveled outside of the country in past 3 weeks: No - Coronavirus Screening Are you exhibiting any of the following symptoms?: No - Vaccine Status Have you recieved a Covid-19 vaccination: No - Review of Systems Constitutional: No Symptoms Ears, Nose, & Throat: No Symptoms Respiratory: No Symptoms Cardiac: No Symptoms Abdominal/Gastrointestinal: No Symptoms Genitourinary Symptoms: No Symptoms Musculoskeletal: Injury, Joint Pain, Joint Swelling Skin: No Symptoms Neurological: No Symptoms Endocrine: No Symptoms Immunological/Allergic: No Symptoms - Past Medical History Pertinent Past Medical History: Yes Neurological History: Migraines ENT History: No Pertinent History Cardiac History: No Pertinent History Respiratory History: No Pertinent History Endocrine Medical History: No Pertinent History Musculoskeletal History: No Pertinent History GI Medical History: No Pertinent History History: Other Psycho-Social History: Depression Male Reproductive Disorders: No Pertinent History Other Medical History: recently dx with HPV virus - Past Surgical History Past Surgical History: Yes Other Surgical History: never been put under ortho surg to finger but done with block - Social History Smoking Status: Current every day smoker How long have you smoked: years Exposure to second hand smoke: No Drug Use: none Patient Lives Alone: No Significant Family History: no pertinent family hx - Nursing Vital Signs Nursing Vital Signs: Initial Vital Signs Temperature 98.0 F 05/07/22 07:53 Pulse Rate 64 05/07/22 07:53 Respiratory Rate 18 05/07/22 07:53 Blood Pressure 118/59 05/07/22 07:53 O2 Sat by Pulse Oximetry 98 05/07/22 07:53 Pain Scale Pain Intensity 5 - Physical Exam General Appearance: no apparent distress, alert Eyes, Ears, Nose, Throat Exam: normal ENT inspection Neck Exam: normal inspection, supple, full range of motion Cardiovascular/Respiratory Exam: normal breath sounds, regular rate/rhythm Legs Exam: bilateral leg: non-tender, normal inspection, normal range of motion, no evidence of injury Knees Exam: right knee: bone tenderness (Medial knee), pain, swelling, left knee: non-tender, normal inspection, normal range of motion, no evidence of injury Ankle Exam: right ankle: bone tenderness, pain, left ankle: non-tender, bilateral ankle: normal inspection, normal range of motion Foot Exam: bilateral foot: non-tender, normal inspection, normal range of motion, no evidence of injury Neuro/Tendon Exam: normal sensation, normal motor functions, normal tendon functions Mental Status Exam: alert, oriented x 3, cooperative Skin Exam: normal color SpO2 Interpretation: normal SpO2: 98 O2 Delivery: Room Air Ordered Tests: Active Orders 24 hr Category Date Time Status ANKLE (3 VIEWS) Stat Exams 05/07/22 08:07 Completed KNEE (3 VIEWS) Stat Exams 05/07/22 08:08 Completed Medication Summary Discontinued Medications Generic Name Dose Route Start Last Admin Trade Name Freq PRN Reason Stop Dose Admin Ketorolac Tromethamine 30 mg 05/07/22 08:07 05/07/22 08:45 Ketorolac Tromethamine 30 Mg/Ml Inj IM 05/07/22 08:08 30 mg STAT ONE Administration Ketorolac Tromethamine Confirm 05/07/22 08:43 Ketorolac Tromethamine 30 Mg/Ml Inj Administered 05/07/22 08:44 Dose 30 mg .ROUTE .STK-MED ONE - Progress Progress: improved, pain not gone completely, re-examined Progress Note: 42 years old is evaluated for right knee and ankle pain after he got pinned between a cow head and a pole yesterday as he works at [employer]. Since then having increasing pain in the medial knee and lateral ankle, more with ambulation and better with resting. Minimal swelling around medial knee but no obvious swelling of ankle. X-rays negative, given Toradol for symptomatic relief. I believe patient has ligamentous injury/sprain, given Aircast and Gage wrap around knee. Recommended outpatient orthopedic/podiatry follow-up. 05/07/22 09:42 Counseled pt/family regarding: diagnosis, need for follow-up, rad results - Departure Departure Disposition: Home Clinical Impression: Ankle sprain, Knee sprain Condition: Stable Critical Care Time: No Referrals: MANAV SIMMS [Primary Care Provider] - Follow up/PCP as directed ORTHO - JAVY HURTADO NP [NON-STAFF PHY W/O PRIVILEGES] - Follow up/PCP as directed (1-2 days for reevaluation) Instructions: Ankle Sprain (DC) Additional Instructions: Take Tylenol/diclofenac as needed for pain. Keep it elevated. Weightbearing as tolerated. Follow-up with orthopedics for reevaluation. Return to ER for any worsening.
[2022-05-07 10:05] VITALS: BP 121/71; PULSE 62; O2SAT 97
== END 2022-05-07 10:00 | disposition home or self-care (01) ==
LOC: ED 07:37
DX: S93.401A Sprain of unspecified ligament of right ankle, initial encounter (principal); S83.91XA Sprain of unspecified site of right knee, initial encounter; X50.0XXA Overexertion from strenuous movement or load, initial encounter; Y92.86 Slaughter house as the place of occurrence of the external cause; Y99.0 Civilian activity done for income or pay; Z28.310 Unvaccinated for COVID-19; Z72.0 Tobacco use
CPT/HCPCS: 73562; 73610; 96372; 99283; J1885

== ENCOUNTER 2023-08-25 22:11 | Observation (INO) | payer OTHER ==
--- NOTE | 2023-08-25 22:30 | ERPHSYRPT ---
- History of Present Illness Time Seen by Provider: 08/25/23 22:31 Source: patient Physician History: 43-year-old male presents to emergency department for evaluation of right upper extremity numbness tingling and slight weakness. Patient states she has got history of right shoulder pain. Patient believes he injured the shoulder when he was 21. Patient has been experiencing this pain intermittently. Patient is unsure if this is associated with his current complaint. Patient states his nu mbness tingling and weakness started approximately 2130 this evening. No associated chest pain or shortness of breath. No nausea vomiting or diaphoresis. Symptoms are mild to moderate in intensity. No specific worsening or improving factors. Mother at bedside. They voiced no other complaints or concerns at this time. Portions of this note were created with voice recognition technology. There may be grammatical, spelling, punctuation or sound alike errors Timing/Duration: today Severity: moderate Modifying Factors: Improves With: nothing Associated Symptoms: other (Migraines) Allergies/Adverse Reactions: No Known Drug Allergies Allergy (Verified 08/25/23 22:14) Home Medications: No Reportable Medications [No Reported Medications] 12/26/21 [History] Hx Tetanus, Diphtheria Vaccination/Date Given: Yes Hx Influenza Vaccination/Date Given: No Hx Pneumococcal Vaccination/Date Given: No - Review of Systems Constitutional: No Symptoms, No Fever, No Chills Eyes: No Symptoms Ears, Nose, & Throat: No Symptoms Respiratory: No Symptoms, No Cough, No Dyspnea Cardiac: No Symptoms, No Chest Pain, No Edema, No Syncope Abdominal/Gastrointestinal: No Symptoms, No Abdominal Pain, No Nausea, No Vomiting, No Diarrhea Genitourinary Symptoms: No Symptoms, No Dysuria Musculoskeletal: No Symptoms, No Back Pain, No Neck Pain Skin: No Symptoms, No Rash Neurological: No Symptoms, No Dizziness, No Focal Weakness, No Sensory Changes Psychological: No Symptoms Endocrine: No Symptoms Hematologic/Lymphatic: No Symptoms Immunological/Allergic: No Symptoms All Other Systems: Reviewed and Negative - Past Medical History Pertinent Past Medical History: Yes Neurological History: Migraines ENT History: No Pertinent History Cardiac History: No Pertinent History Respiratory History: No Pertinent History Endocrine Medical History: No Pertinent History Musculoskeletal History: No Pertinent History GI Medical History: No Pertinent History History: Other Psycho-Social History: Depression Male Reproductive Disorders: No Pertinent History Other Medical History: recently dx with HPV virus - Past Surgical History Past Surgical History: Yes Other Surgical History: never been put under ortho surg to finger but done with block Significant Family History: no pertinent family hx - Social History Smoking Status: Current every day smoker How long have you smoked: years Exposure to second hand smoke: No Drug Use: none Patient Lives Alone: No - Nursing Vital Signs Nursing Vital Signs: Initial Vital Signs Temperature 98.4 F 08/25/23 22:15 Pulse Rate 59 L 08/25/23 22:15 Respiratory Rate 18 08/25/23 22:15 Blood Pressure 133/91 08/25/23 22:15 O2 Sat by Pulse Oximetry 98 08/25/23 22:15 Pain Scale Pain Intensity 7 - Physical Exam General Appearance: no apparent distress, alert Eye Exam: PERRL/EOMI, eyes nml inspection Ears, Nose, Throat Exam: normal ENT inspection, TMs normal, pharynx normal, moist mucous membranes Neck Exam: normal inspection, non-tender, supple, full range of motion Respiratory Exam: normal breath sounds, lungs clear, airway intact, No respiratory distress Cardiovascular Exam: regular rate/rhythm, normal heart sounds, normal peripheral pulses Gastrointestinal/Abdomen Exam: soft, normal bowel sounds, No tenderness, No mass Back Exam: normal inspection, normal range of motion, No CVA tenderness, No vertebral tenderness Extremity Exam: normal inspection, normal range of motion, pelvis stable Neurologic Exam: alert, oriented x 3, cooperative, normal mood/affect, sensation nml, No motor deficits Skin Exam: normal color, warm, dry, No rash Lymphatic Exam: No adenopathy SpO2 Interpretation: normal SpO2: 98 O2 Delivery: Room Air - Course Nursing assessment & vital signs reviewed: Yes EKG Interpreted by Me: RATE (63), Sinus Rhythm, NORMAL AXIS, NORMAL INTERVALS - CT Exams Head CT Interpretation: Tele-radiologist Report (No acute intracranial abnormalities observed) Ordered Tests: Active Orders 24 hr Category Date Time Status Full Time Staff Interpreter STAT Care 08/25/23 22:25 Active EKG-ER Only STAT Care 08/25/23 22:25 Active IV Insertion STAT Care 08/25/23 22:25 Active Pulse Oximetry (ED) STAT Care 08/25/23 22:25 Active HEAD WITHOUT CONTRAST [CT] Stat Exams 08/25/23 22:26 Completed CBC W DIFF Stat Lab 08/25/23 22:37 Completed CMP Stat Lab 08/25/23 22:37 Completed TROPONIN Q4H Lab 08/25/23 22:37 Completed TROPONIN Q4H Lab 08/26/23 02:30 Ordered TROPONIN Q4H Lab 08/26/23 06:30 Ordered Transfer Order Routine Transfer 08/26/23 Ordered Medication Summary Generic Name Dose Route Start Last Admin Trade Name Frepurvi PRN Reason Stop Dose Admin Sodium Chloride 1,000 mls @ 75 mls/hr 08/26/23 01:00 08/26/23 01:04 Sodium Chloride 0.9% 1000 Ml IV 09/25/23 00:59 75 mls/hr .[id number] TRAVIS Administration Discontinued Medications Generic Name Dose Route Start Last Admin Trade Name Freq PRN Reason Stop Dose Admin Aspirin 324 mg 08/26/23 00:59 08/26/23 01:04 Aspirin 81 Mg Tab.Chew PO 08/26/23 01:00 324 mg STAT ONE Administration Aspirin Confirm 08/26/23 01:01 Aspirin 81 Mg Tab.Chew Administered 08/26/23 01:02 Dose 324 mg .ROUTE .STNewswired-MED ONE Lab/Rad Data: Laboratory Result Diagrams 08/25/23 22:37 08/25/23 22:37 Laboratory Results 08/25/23 08/25/23 08/25/23 Range/Units 22:37 22:37 22:37 WBC 9.8 (4.0-10.5) x10^3/uL RBC 4.42 (4.1-5.6) x10^6/uL Hgb 14.0 (12.5-18.0) g/dL Hct 40.3 L (42-50) % MCV 91.2 (78-100) fL MCH 31.7 (26-32) pg MCHC 34.7 (32-36) g/dL RDW 13.2 (11.5-14.0) % Plt Count 289 (150-450) x10^3/uL MPV 10.5 (7.5-11.0) fL Gran % 52.6 (36.0-66.0) % Immature Gran % (Auto) 0.2 (0.00-0.4) % Nucleat RBC Rel Count 0.0 (0.00-0.1) % Eos # (Auto) 0.16 (0-0.5) x10^3/uL Immature Gran # (Auto) 0.02 (0.00-0.03) x10^3u/L Absolute Lymphs (auto) 3.56 (1.0-4.6) x10^3/uL Absolute Monos (auto) 0.85 (0.0-1.3) x10^3/uL Absolute Nucleated RBC 0.00 (0.00-0.01) x10^3u/L Lymphocytes % 36.3 (24.0-44.0) % Monocytes % 8.7 (0.0-12.0) % Eosinophils % 1.6 (0.00-5.0) % Basophils % 0.6 (0.0-0.4) % Absolute Granulocytes 5.17 (1.4-6.9) x10^3/uL Basophils # 0.06 (0-0.4) x10^3/uL Sodium 140 (135-145) mmol/L Potassium 4.1 (3.5-5.1) mmol/L Chloride 107 (98-107) mmol/L Carbon Dioxide 26 (22-30) mmol/L Anion Gap 11.2 (5-15) MEQ/L BUN 12 (9-20) mg/dL Creatinine 1.02 (0.66-1.25) mg/dL Estimated GFR 94.7 ML/MIN Glucose 112 H (74-106) mg/dL Calcium 9.7 (8.4-10.2) mg/dL Total Bilirubin 0.40 (0.2-1.3) mg/dL AST 23 (17-59) U/L ALT 17 (0-50) U/L Alkaline Phosphatase 79 (38-126) U/L Troponin I < 0.012 (0.000-0.033) ng/mL Serum Total Protein 6.9 (6.3-8.2) g/dL Albumin 4.4 (3.5-5.0) g/dL - Progress Progress: improved Progress Note: Case discussed with hospitalist at 1255. Dr. Barcenas accepts admission for TIA/stroke workup. Patient will be admitted for an MRI and further evaluation. 43-year-old male presents to our ED for evaluation of paresthesias to his right upper extremity. However he advised the teleneurologist that he was also experiencing paresthesias to his face and right knee. This was not mentioned to us upon arrival. CT head shows no acute intracranial pathology. Laboratory workup essentially nonremarkable. Teleneurologist feels patient will require hospitalization for an MRI. Patient received a dose of chewable aspirin. IV fluids running at 75 an hour. Admit order placed. Plan of care discussed with patient. He agrees to admission to [facility] for further evaluation and treatment. Portions of this note were created with voice recognition technology. There may be grammatical, spelling, punctuation or sound alike errors Complexity problem addressed high. Patient required immediate action to assess for possible further deterioration/stroke workup. Stat stroke CT head ordered and completed. No critical care time Complex of data reviewed and analyzed is extensive. Test ordered test reviewed results analyzed and correlated clinically with history and physical exam. Bharat borrego discussed with hospitalist and neurologist. Risk of complication and or risk of morbidity/mortality of patient management is high. Patient requires hospitalization for further evaluation and treatment. Vital stable. Time spent admit patient approximately 20 minutes. Plan of care established for shared decision making. No social determinants of health present impede follow-up Portions of this note were created with voice recognition technology. There may be grammatical, spelling, punctuation or sound alike errors 08/26/23 00:55 08/26/23 01:[address] Jaz Will see patient in: hospital (observation) Counseled pt/family regarding: lab results, diagnosis, rad results - Departure Departure Disposition: Observation Clinical Impression: Paresthesias, Numbness, Stroke Condition: Stable Critical Care Time: No Referrals: MANAV SIMMS [Primary Care Provider] - Follow up/PCP as directed
[2023-08-25 22:40] LABS: Absolute Neutrophil Ct (ANC) 5.17 x10^3/uL (1.4-6.9); BASOPHIL % 0.6 % (0.0-0.4); Basophil (Absolute #) 0.06 x10^3/uL (0-0.4); Eosinophil % 1.6 % (0.00-5.0); Eosinophil (Absolute #) 0.16 x10^3/uL (0-0.5); Hematocrit 40.3 % (42-50); IMMATURE GRAN # 0.02 x10^3u/L (0.00-0.03); IMMATURE GRAN % 0.2 % (0.00-0.4); Lymphocyte (Absolute #) 3.56 x10^3/uL (1.0-4.6); Lymphocytes % 36.3 % (24.0-44.0); Mean Cell Volume 91.2 fL (78-100); Mean Corpuscular Hemoglobin 31.7 pg (26-32); Mean Corpuscular Hgb Concent. 34.7 g/dL (32-36); Mean Platelet Volume 10.5 fL (7.5-11.0); Monocyte (Absolute #) 0.85 x10^3/uL (0.0-1.3); Monocytes % 8.7 % (0.0-12.0); Neutrophil % 52.6 % (36.0-66.0); Platelet Count 289 x10^3/uL (150-450); Red Blood Count 4.42 x10^6/uL (4.1-5.6); Red Cell Distribution Width 13.2 % (11.5-14.0); White Blood Count 9.8 x10^3/uL (4.0-10.5)
[2023-08-25 22:53] LABS: ALBUMIN 4.4 g/dL (3.5-5.0); ANION GAP 11.2 MEQ/L (5-15); BILIRUBIN,TOTAL 0.4 mg/dL (0.2-1.3); Calcium 9.7 mg/dL (8.4-10.2); Creatinine 1 1.02 mg/dL (0.66-1.25); EST GLOMERULAR FILTRATION RATE 94.7 ML/MIN; Potassium 4.1 mmol/L (3.5-5.1); Total Protein 6.9 g/dL (6.3-8.2)
--- NOTE | 2023-08-25 23:10 | XRAY ---
CLINICAL HISTORY: pain COMPARISON: None. TECHNIQUE: Axial non-contrast CT scan of the brain was performed from the skull base to the high parietal region with coronal and sagittal reconstructions.One of the following dose reduction techniques were utilized for this exam: Automated exposure control, adjustment of the mA and/or kV according to patient size, use of iterative reconstruction. FINDINGS: The visualized brain parenchyma shows a normal appearance. Cesar-white matter differentiation is maintained. No midline shifts or deformity. No intracerebral or extra axial hematoma. Normal size and configuration of the cerebral ventricles. Normal CT appearance of the posterior fossa structures namely the cerebellar hemispheres, brainstem and cerebellar peduncles. The IACs are unremarkable. The cerebello-pontine angles are clear. The osseous structures in the skull base are unremarkable. No definite calvarium fractures. The scanned paranasal sinuses are clear. Bilateral mastoid air cells appear unremarkable. IMPRESSION: No acute abnormality is detected in CT head. Electronically Signed by: Tacho Serna MD. (08/25/2023 23:05:57 EDT)
[2023-08-26] MEDS ORDERED: Sodium Chloride 0.9% 1000 ML 1,000 ML ONE (01:01)
[2023-08-26] MEDS ORDERED: BABY ASPIRIN 81 MG CHEW ONE (01:01)
[2023-08-26] MEDS: BABY ASPIRIN 81 MG CHEW PO ONE (01:04)
[2023-08-26] MEDS: Sodium Chloride 0.9% 1000 ML 1,000 ML IV SCH (01:04)
--- NOTE | 2023-08-26 04:21 | PCM.HP ---
History of Present Illness - Chief Complaint Chief Complaint: Numbness tingling weakness rt arm, TIA/stroke History of Present Illness: is a 43 year old male who presents with right upper extremity numbness and weakness that was transient. Patient states his numbness tingling and weakness started approximately 2130 this evening. No associated chest pain or shortness of breath. No nausea vomiting or diaphoresis. He was symptom free at this time but teleneurology requested an admission for an MRI. - Review of Systems Constitutional: No Fever, No Chills Eyes: No Symptoms Ears, Nose, & Throat: No Symptoms Respiratory: No Cough, No Short Of Breath Cardiac: No Chest Pain, No Edema, No Syncope Abdominal/Gastrointestinal: No Abdominal Pain, No Nausea, No Vomiting, No Diarrhea Genitourinary Symptoms: No Dysuria Musculoskeletal: No Back Pain, No Neck Pain Skin: No Rash Neurological: No Dizziness, No Focal Weakness, No Sensory Changes Psychological: No Symptoms Endocrine: No Symptoms Hematologic/Lymphatic: No Symptoms Immunological/Allergic: No Symptoms Medications & Allergies Home Medications: Home Medication List No Reportable Medications [No Reported Medications] 12/26/21 [History Confirmed 08/25/23] Allergies/Adverse Reactions: Allergies Allergy/AdvReac Type Severity Reaction Status Date / Time No Known Drug Allergies Allergy Verified 08/25/23 22:14 - Past Medical History Past Medical History: Yes Neurological History: Migraines ENT History: No Pertinent History Cardiac History: No Pertinent History Respiratory History: No Pertinent History Endocrine Medical History: No Pertinent History Musculoskelatal History: No Pertinent History GI Medical History: No Pertinent History History: Other Pyscho-Social History: Depression Male Reproductive Disorders: No Pertinent History Comment: recently dx with HPV virus - Past Surgical History Past Surgical History: Yes Neuro Surgical History: No Pertinent History Cardiac History: No Pertinent History Respiratory Surgery: No Pertinent History GI Surgical History: No Pertinent History Genitourinary Surgical Hx: No Pertinent History Musculskeletal Surgical Hx: Orthopedic Surgery Male Surgical History: No Pertinent History Other Surgical History: never been put under ortho surg to finger but done with block Significant Family History: no pertinent family hx - Social History Smoking Status: Current every day smoker How long have you smoked: 28 yrs Exposure to second hand smoke: Yes Alcohol: Occasionally Drug Use: none - Social Determinants of Health Will the patient participate in the screening: Yes Do you worry about a steady place to live?: No Do you have any problems with any of the following?: No known problems In the past 12 months,have you had to go without utilities?: No Have you or anyone in your house had to go without enough: No Transportation Issues: No Has anyone in your support network made you feel unsafe?: No Does the patient want assistance with any of the above?: No - Physical Exam Vital Signs: Vital Signs - 24 hr Temp Pulse Resp BP BP Pulse Ox 08/26/23 02:07 97.9 F 52 L 18 130/70 96 08/26/23 01:30 68 20 107/77 99 08/26/23 01:23 98 08/26/23 01:00 63 23 114/73 99 08/26/23 00:30 68 20 121/68 100 08/26/23 00:00 58 L 14 119/72 100 08/25/23 23:31 56 L 15 121/87 98 08/25/23 23:00 77 19 117/73 99 08/25/23 22:41 60 19 127/80 100 08/25/23 22:30 57 L 20 121/62 100 08/25/23 22:29 98 08/25/23 22:15 98.4 F 59 L 18 133/91 98 General Appearance: no apparent distress, alert Neurologic Exam: alert, oriented x 3, cooperative, normal mood/affect, nml cerebellar function, nml station & gait, sensation nml, No motor deficits Eye Exam: PERRL/EOMI, eyes nml inspection Ears, Nose, Throat Exam: normal ENT inspection, TMs normal, pharynx normal, moist mucous membranes Neck Exam: normal inspection, non-tender, supple, full range of motion Respiratory Exam: normal breath sounds, lungs clear, No respiratory distress Cardiovascular Exam: regular rate/rhythm, normal heart sounds, normal peripheral pulses Gastrointestinal/Abdomen Exam: soft, normal bowel sounds, No tenderness, No mass Back Exam: normal inspection, normal range of motion, No CVA tenderness, No vertebral tenderness Extremity Exam: normal inspection, normal range of motion, pelvis stable Skin Exam: normal color, warm, dry, No rash Lymphatic Exam: No adenopathy Results - Labs Lab/Micro Results: Lab Results-Last 24 Hours 08/25/23 08/25/23 08/25/23 Range/Units 22:37 22:37 22:37 WBC 9.8 (4.0-10.5) x10^3/uL RBC 4.42 (4.1-5.6) x10^6/uL Hgb 14.0 (12.5-18.0) g/dL Hct 40.3 L (42-50) % MCV 91.2 (78-100) fL MCH 31.7 (26-32) pg MCHC 34.7 (32-36) g/dL RDW 13.2 (11.5-14.0) % Plt Count 289 (150-450) x10^3/uL MPV 10.5 (7.5-11.0) fL Gran % 52.6 (36.0-66.0) % Immature Gran % (Auto) 0.2 (0.00-0.4) % Nucleat RBC Rel Count 0.0 (0.00-0.1) % Eos # (Auto) 0.16 (0-0.5) x10^3/uL Immature Gran # (Auto) 0.02 (0.00-0.03) x10^3u/L Absolute Lymphs (auto) 3.56 (1.0-4.6) x10^3/uL Absolute Monos (auto) 0.85 (0.0-1.3) x10^3/uL Absolute Nucleated RBC 0.00 (0.00-0.01) x10^3u/L Lymphocytes % 36.3 (24.0-44.0) % Monocytes % 8.7 (0.0-12.0) % Eosinophils % 1.6 (0.00-5.0) % Basophils % 0.6 (0.0-0.4) % Absolute Granulocytes 5.17 (1.4-6.9) x10^3/uL Basophils # 0.06 (0-0.4) x10^3/uL Sodium 140 (135-145) mmol/L Potassium 4.1 (3.5-5.1) mmol/L Chloride 107 (98-107) mmol/L Carbon Dioxide 26 (22-30) mmol/L Anion Gap 11.2 (5-15) MEQ/L BUN 12 (9-20) mg/dL Creatinine 1.02 (0.66-1.25) mg/dL Estimated GFR 94.7 ML/MIN Glucose 112 H (74-106) mg/dL Calcium 9.7 (8.4-10.2) mg/dL Total Bilirubin 0.40 (0.2-1.3) mg/dL AST 23 (17-59) U/L ALT 17 (0-50) U/L Alkaline Phosphatase 79 (38-126) U/L Troponin I < 0.012 (0.000-0.033) ng/mL Serum Total Protein 6.9 (6.3-8.2) g/dL Albumin 4.4 (3.5-5.0) g/dL 08/26/23 Range/Units 02:30 WBC (4.0-10.5) x10^3/uL RBC (4.1-5.6) x10^6/uL Hgb (12.5-18.0) g/dL Hct (42-50) % MCV (78-100) fL MCH (26-32) pg MCHC (32-36) g/dL RDW (11.5-14.0) % Plt Count (150-450) x10^3/uL MPV (7.5-11.0) fL Gran % (36.0-66.0) % Immature Gran % (Auto) (0.00-0.4) % Nucleat RBC Rel Count (0.00-0.1) % Eos # (Auto) (0-0.5) x10^3/uL Immature Gran # (Auto) (0.00-0.03) x10^3u/L Absolute Lymphs (auto) (1.0-4.6) x10^3/uL Absolute Monos (auto) (0.0-1.3) x10^3/uL Absolute Nucleated RBC (0.00-0.01) x10^3u/L Lymphocytes % (24.0-44.0) % Monocytes % (0.0-12.0) % Eosinophils % (0.00-5.0) % Basophils % (0.0-0.4) % Absolute Granulocytes (1.4-6.9) x10^3/uL Basophils # (0-0.4) x10^3/uL Sodium (135-145) mmol/L Potassium (3.5-5.1) mmol/L Chloride (98-107) mmol/L Carbon Dioxide (22-30) mmol/L Anion Gap (5-15) MEQ/L BUN (9-20) mg/dL Creatinine (0.66-1.25) mg/dL Estimated GFR ML/MIN Glucose (74-106) mg/dL Calcium (8.4-10.2) mg/dL Total Bilirubin (0.2-1.3) mg/dL AST (17-59) U/L ALT (0-50) U/L Alkaline Phosphatase (38-126) U/L Troponin I < 0.012 (0.000-0.033) ng/mL Serum Total Protein (6.3-8.2) g/dL Albumin (3.5-5.0) g/dL - Radiology Impressions Radiology Exams & Impressions: Radiology Procedures Category Date Time Status HEAD WITHOUT CONTRAST [CT] Stat Exams 08/25/23 22:26 Completed Assessment/Plan (1) Numbness Current Visit: Yes Status: Acute Assessment & Plan: 1. Numbness and tingling of the right upper extremity - etiology unclear as it has resolved; TIA vs nerve impingement 2. Tele neuro requested admission for MRI Code(s): R20.0 - ANESTHESIA OF SKIN Telemedicine Encounter - Telemedicine Encounter Telemedicine Encounter: The entirety of this encounter was performed via Telemedicine"
[2023-08-26 07:14] LABS: BASOPHIL % 0.7 % (0.0-0.4); Basophil (Absolute #) 0.07 x10^3/uL (0-0.4); Eosinophil % 3.1 % (0.00-5.0); Hematocrit 40.4 % (42-50); Hemoglobin 13.7 g/dL (12.5-18.0); IMMATURE GRAN # 0.03 x10^3u/L (0.00-0.03); IMMATURE GRAN % 0.3 % (0.00-0.4); Lymphocyte (Absolute #) 3.29 x10^3/uL (1.0-4.6); Lymphocytes % 34.1 % (24.0-44.0); Mean Corpuscular Hemoglobin 31.2 pg (26-32); Mean Corpuscular Hgb Concent. 33.9 g/dL (32-36); Mean Platelet Volume 10.6 fL (7.5-11.0); Monocyte (Absolute #) 0.85 x10^3/uL (0.0-1.3); Monocytes % 8.8 % (0.0-12.0); Platelet Count 279 x10^3/uL (150-450); Red Blood Count 4.39 x10^6/uL (4.1-5.6); Red Cell Distribution Width 13.3 % (11.5-14.0); White Blood Count 9.6 x10^3/uL (4.0-10.5)
[2023-08-26 07:15] VITALS: BP 117/60; PULSE 43; RESP 16; TEMP 97.8; O2SAT 99
[2023-08-26 07:41] LABS: ALBUMIN 3.8 g/dL (3.5-5.0); ANION GAP 8.6 MEQ/L (5-15); BILIRUBIN,TOTAL 0.4 mg/dL (0.2-1.3); Calcium 9.2 mg/dL (8.4-10.2); Creatinine 1 0.81 mg/dL (0.66-1.25); EST GLOMERULAR FILTRATION RATE 113.6 ML/MIN; Potassium 3.8 mmol/L (3.5-5.1); Total Protein 6.2 g/dL (6.3-8.2)
[2023-08-26] MEDS: ECOTRIN 81 MG PO SCH (09:27)
--- NOTE | 2023-08-26 12:03 | XRAY ---
Indication: Numbness and weakness. Multi-slab 3-D [id number] MRA carotid arteries of the neck performed. Comparison: None Study slightly degraded by motion. Visualized common carotid, carotid bulb, internal carotid, and external carotid arteries are normal in MRA appearance bilaterally. Vertebral arteries are bilaterally symmetric without critical stenosis or obstruction. Impression: Normal MRA carotid arteries.
--- NOTE | 2023-08-26 12:09 | XRAY ---
Indication: Right arm numbness. Sagittal, coronal, and axial MRI right shoulder performed using T1, T2, STIR sequences. Comparison: None Coronal T2 sequences slightly degraded by motion artifact. Right shoulder articulation intact without abnormal effusion. Bursal surface supraspinatus tendon appears slightly delaminated with tiny subdeltoid recess fluid favoring partial tear. Remaining rotator cuff intact without abnormal signal. Mild acromioclavicular degenerative arthropathy. Humeral head demonstrates tiny subcortical cysts posterior laterally. No evidence for glenohumeral instability. Long head biceps tendon and anchor intact. Remaining visualized soft tissues are unremarkable. Impression: 1. Mild motion artifact. 2. Partial tear supraspinatus tendon. 2. Incidental mild degenerative arthropathy and tiny humeral head subcortical cysts.
--- NOTE | 2023-08-26 13:06 | XRAY ---
Indication: Numbness. Stroke. Multi-slab 3-D [id number] MRA [place] performed. Comparison: None Distal internal carotid arteries are bilaterally symmetric without critical stenosis or obstruction. Normal carotid terminus with normal branching A1 and M1 segments bilaterally. Posterior circulation demonstrates normal MRA appearance to the basilar, left/right posterior cerebral, left/right superior cerebellar, and left/right anterior inferior cerebellar arteries. Impression: Normal MRA [place].
--- NOTE | 2023-08-26 13:10 | XRAY ---
Indication: Numbness. Sagittal and axial MRI brain performed using pre and post T1, T2, FLAIR, and diffusion sequences. 10 cc Dotarem contrast used. Study was terminated early due to patient motion and sleeping. Comparison: None Age-appropriate global atrophy and mild periventricular degenerative micro-ischemia bilaterally. No acute intracranial hemorrhage, abnormal extra-axial fluid collection, or mass effect. Diffusion images are negative for restricted signal. Following gadolinium, there is no abnormal enhancing intra or extra-axial mass. Fourth ventricle is midline without hydrocephalus. 7/8 cranial nerve complex bilaterally symmetric. Normal flow void signal within the major intracerebral circulation. Normal appearing craniocervical junction and sella turcica. Impression: Atrophy and degenerative micro-ischemia within normal limits for patient's age. Remaining MRI brain with contrast exam is negative.
--- NOTE | 2023-08-26 13:49 | PCM.DS ---
Discharge Summary Date of Admission: 08/26/23 01:44 Date of Discharge: 08/26/23 Admitting Physician: NEFTALI JOHNSON MD Primary Care Provider: MANAV SIMMS Allergies Allergies No Known Drug Allergies Allergy (Verified 08/25/23 22:14) Hospital Summary - Hospital Course Hospital Course: is a 43 year old male who presents with right upper extremity numbness and weakness that was transient admitted for observation/stroke r/o. Neurology consulted with recommendations for MRI/MRA brain/neck/echo. MRI/MRI brain/neck unremarkable. MRI Upper right ext showing partial tear which we will have him follow up with ortho op. Echo is pending. Advised follow up with PCP for results. Numbness and tingling have improved. No longer with weakness. Stable for discharge. Discharge Note New Diagnosis: numbness New Medications: ASA/statin Follow Up: pcp/ortho Latest Assessment & Plan (1) Numbness Current Visit: Yes Status: Acute Assessment & Plan: 1. Numbness and tingling of the right upper extremity - etiology unclear as it has resolved; TIA vs nerve impingement 2. Tele neuro requested admission for MRI #right upper ext numbness -MRI showing partial tear, will have him follow up OP for evaluation #Migraines -does not take home meds I spent 35 minutes [id number] with the patient on the day of discharge performing discharge exam, discussing hospital stay and discharge instructions with patient and caregivers, preparation of discharge records, prescriptions & referral forms and addressing any questions/concerns the patient had as documented above. - Vitals & Intake/Output Vital Signs: Vital Signs Temperature 97.8 F 08/26/23 07:14 Pulse Rate 43 L 08/26/23 07:14 Respiratory Rate 16 08/26/23 07:14 Blood Pressure 117/60 08/26/23 07:14 O2 Sat by Pulse Oximetry 99 08/26/23 07:14 Intake & Output: Intake & Output 08/24/23 08/25/23 08/26/23 08/27/23 11:59 11:59 11:59 11:59 Intake Total 360 Balance 360 Weight 63 kg - Lab Result Diagrams: 08/26/23 06:40 08/26/23 06:40 Lab Results-Last 24 Hrs: Lab Results-Last 24 Hours 05/01/24 05/01/24 05/01/24 Range/Units 22:37 22:37 22:37 WBC 9.8 (4.0-10.5) x10^3/uL RBC 4.42 (4.1-5.6) x10^6/uL Hgb 14.0 (12.5-18.0) g/dL Hct 40.3 L (42-50) % MCV 91.2 (78-100) fL MCH 31.7 (26-32) pg MCHC 34.7 (32-36) g/dL RDW 13.2 (11.5-14.0) % Plt Count 289 (150-450) x10^3/uL MPV 10.5 (7.5-11.0) fL Gran % 52.6 (36.0-66.0) % Immature Gran % (Auto) 0.2 (0.00-0.4) % Nucleat RBC Rel Count 0.0 (0.00-0.1) % Eos # (Auto) 0.16 (0-0.5) x10^3/uL Immature Gran # (Auto) 0.02 (0.00-0.03) x10^3u/L Absolute Lymphs (auto) 3.56 (1.0-4.6) x10^3/uL Absolute Monos (auto) 0.85 (0.0-1.3) x10^3/uL Absolute Nucleated RBC 0.00 (0.00-0.01) x10^3u/L Lymphocytes % 36.3 (24.0-44.0) % Monocytes % 8.7 (0.0-12.0) % Eosinophils % 1.6 (0.00-5.0) % Basophils % 0.6 (0.0-0.4) % Absolute Granulocytes 5.17 (1.4-6.9) x10^3/uL Basophils # 0.06 (0-0.4) x10^3/uL Sodium 140 (135-145) mmol/L Potassium 4.1 (3.5-5.1) mmol/L Chloride 107 (98-107) mmol/L Carbon Dioxide 26 (22-30) mmol/L Anion Gap 11.2 (5-15) MEQ/L BUN 12 (9-20) mg/dL Creatinine 1.02 (0.66-1.25) mg/dL Estimated GFR 94.7 ML/MIN Glucose 112 H (74-106) mg/dL Calcium 9.7 (8.4-10.2) mg/dL Total Bilirubin 0.40 (0.2-1.3) mg/dL AST 23 (17-59) U/L ALT 17 (0-50) U/L Alkaline Phosphatase 79 (38-126) U/L Troponin I < 0.012 (0.000-0.033) ng/mL Serum Total Protein 6.9 (6.3-8.2) g/dL Albumin 4.4 (3.5-5.0) g/dL Triglycerides (30-150) mg/dL Cholesterol (50-200) mg/dL LDL Cholesterol (30-100) mg/dL HDL Cholesterol (40-60) mg/dL Heart Disease Risk Ratio 08/26/23 08/26/23 08/26/23 Range/Units 02:30 06:40 06:40 WBC 9.6 (4.0-10.5) x10^3/uL RBC 4.39 (4.1-5.6) x10^6/uL Hgb 13.7 (12.5-18.0) g/dL Hct 40.4 L (42-50) % MCV 92.0 (78-100) fL MCH 31.2 (26-32) pg MCHC 33.9 (32-36) g/dL RDW 13.3 (11.5-14.0) % Plt Count 279 (150-450) x10^3/uL MPV 10.6 (7.5-11.0) fL Gran % 53.0 (36.0-66.0) % Immature Gran % (Auto) 0.3 (0.00-0.4) % Nucleat RBC Rel Count 0.0 (0.00-0.1) % Eos # (Auto) 0.30 (0-0.5) x10^3/uL Immature Gran # (Auto) 0.03 (0.00-0.03) x10^3u/L Absolute Lymphs (auto) 3.29 (1.0-4.6) x10^3/uL Absolute Monos (auto) 0.85 (0.0-1.3) x10^3/uL Absolute Nucleated RBC 0.00 (0.00-0.01) x10^3u/L Lymphocytes % 34.1 (24.0-44.0) % Monocytes % 8.8 (0.0-12.0) % Eosinophils % 3.1 (0.00-5.0) % Basophils % 0.7 (0.0-0.4) % Absolute Granulocytes 5.10 (1.4-6.9) x10^3/uL Basophils # 0.07 (0-0.4) x10^3/uL Sodium (135-145) mmol/L Potassium (3.5-5.1) mmol/L Chloride (98-107) mmol/L Carbon Dioxide (22-30) mmol/L Anion Gap (5-15) MEQ/L BUN (9-20) mg/dL Creatinine (0.66-1.25) mg/dL Estimated GFR ML/MIN Glucose (74-106) mg/dL Calcium (8.4-10.2) mg/dL Total Bilirubin (0.2-1.3) mg/dL AST (17-59) U/L ALT (0-50) U/L Alkaline Phosphatase (38-126) U/L Troponin I < 0.012 < 0.012 (0.000-0.033) ng/mL Serum Total Protein (6.3-8.2) g/dL Albumin (3.5-5.0) g/dL Triglycerides (30-150) mg/dL Cholesterol (50-200) mg/dL LDL Cholesterol (30-100) mg/dL HDL Cholesterol (40-60) mg/dL Heart Disease Risk Ratio 08/26/23 08/26/23 Range/Units 06:40 06:45 WBC (4.0-10.5) x10^3/uL RBC (4.1-5.6) x10^6/uL Hgb (12.5-18.0) g/dL Hct (42-50) % MCV (78-100) fL MCH (26-32) pg MCHC (32-36) g/dL RDW (11.5-14.0) % Plt Count (150-450) x10^3/uL MPV (7.5-11.0) fL Gran % (36.0-66.0) % Immature Gran % (Auto) (0.00-0.4) % Nucleat RBC Rel Count (0.00-0.1) % Eos # (Auto) (0-0.5) x10^3/uL Immature Gran # (Auto) (0.00-0.03) x10^3u/L Absolute Lymphs (auto) (1.0-4.6) x10^3/uL Absolute Monos (auto) (0.0-1.3) x10^3/uL Absolute Nucleated RBC (0.00-0.01) x10^3u/L Lymphocytes % (24.0-44.0) % Monocytes % (0.0-12.0) % Eosinophils % (0.00-5.0) % Basophils % (0.0-0.4) % Absolute Granulocytes (1.4-6.9) x10^3/uL Basophils # (0-0.4) x10^3/uL Sodium 140 (135-145) mmol/L Potassium 3.8 (3.5-5.1) mmol/L Chloride 110 H (98-107) mmol/L Carbon Dioxide 26 (22-30) mmol/L Anion Gap 8.6 (5-15) MEQ/L BUN 14 (9-20) mg/dL Creatinine 0.81 (0.66-1.25) mg/dL Estimated GFR 113.6 ML/MIN Glucose 101 (74-106) mg/dL Calcium 9.2 (8.4-10.2) mg/dL Total Bilirubin 0.40 (0.2-1.3) mg/dL AST 22 (17-59) U/L ALT 15 (0-50) U/L Alkaline Phosphatase 72 (38-126) U/L Troponin I (0.000-0.033) ng/mL Serum Total Protein 6.2 L (6.3-8.2) g/dL Albumin 3.8 (3.5-5.0) g/dL Triglycerides 108 (30-150) mg/dL Cholesterol 153 (50-200) mg/dL LDL Cholesterol 94 (30-100) mg/dL HDL Cholesterol 52 (40-60) mg/dL Heart Disease Risk Ratio 3.0 - Radiology Exams Ordered Rad Exams-Entire Visit: Radiology Procedures Category Date Time Status ECHO W/2D AND DOPPLER [US] Routine Exams 08/26/23 07:40 Taken HEAD WITHOUT CONTRAST [CT] Stat Exams 08/25/23 22:26 Completed MRA BRAIN WITHOUT CONTRAST [MRI] Routine Exams 08/26/23 07:39 Completed MRA NECK WITHOUT CONTRAST [MRI] Urgent Exams 08/26/23 07:39 Completed MRI BRAIN W & W/O CONTRAST [MRI] Routine Exams 08/26/23 04:20 Completed MRI UPPER EXT JOINT W/O CONTRA [MRI] Routine Exams 08/26/23 04:20 Completed - Procedures and Test Procedures and Tests throughout Hospitalization: Therapy Orders & Screens 08/26/23 02:39 Smoking Cessation Education ONCE Comment: Diagnosis: Numbness tingling weakness rt arm, TIA/stroke Smoking Status: Current every day smoker How long have you smoked: 28 yrs Have you smoked in the past 12 months: Yes Approximately how many cigarettes per day: 10 Do you dip or chew tobacco: No Discharge Exam General Appearance: no apparent distress Neurologic Exam: alert, oriented x 3, cooperative Eye Exam: PERRL Ears, Nose, Throat Exam: normal ENT inspection Neck Exam: normal inspection Respiratory Exam: normal breath sounds, lungs clear Cardiovascular Exam: regular rate/rhythm, normal heart sounds Gastrointestinal/Abdomen Exam: soft, normal bowel sounds Male Genitalia Exam: deferred Rectal Exam: deferred Back Exam: normal inspection Extremity Exam: normal inspection Skin Exam: normal color Final Diagnosis/Problem List - Final Discharge Diagnosis/Problem (1) Right upper extremity numbness Current Visit: Yes Status: Acute Code(s): R20.0 - ANESTHESIA OF SKIN (2) Smoker Current Visit: Yes Status: Acute Code(s): F17.200 - NICOTINE DEPENDENCE, UNSPECIFIED, UNCOMPLICATED (3) Migraine Current Visit: Yes Status: Acute Code(s): G43.909 - MIGRAINE, UNSP, NOT INTRACTABLE, WITHOUT STATUS MIGRAINOSUS (4) Depression Current Visit: Yes Status: Acute Code(s): F32.A - DEPRESSION, UNSPECIFIED (5) Paresthesias Current Visit: Yes Status: Acute Code(s): R20.2 - PARESTHESIA OF SKIN - Discharge Disposition: Home, Self-Care Condition: Stable Prescriptions: New Aspirin EC 81 mg [Ecotrin 81 mg] 81 mg PO DAILY 30 Days #30 tablet Simvastatin 20Mg [Zocor 20Mg] 40 mg PO HS 30 Days #30 tablet No Action No Reportable Medications [No Reported Medications] Instructions: Stroke (DC) Follow up with: MANAV SIMMS [Primary Care Provider] - 09/02/23 9:30 am Forms: Discharge Instructions
[2023-08-26] MEDS ORDERED: ZOCOR 20MG PO SCH (22:00)
--- NOTE | 2023-08-27 14:27 | ECHO ---
Transthoracic echocardiographic examination and color Doppler was done on 08/26/2023. INDICATION: Shortness of breath. IMPRESSION: 1) NO REGIONAL WALL MOTION ABNORMALITY. ESTIMATED GLOBAL LEFT VENTRICULAR EJECTION FRACTION OF ABOUT 55 TO 60%. 2) TRACE MITRAL REGURGITATION 3) TRACE TRICUSPID REGURGITATION. RIGHT VENTRICULAR SYSTOLIC PRESSURE OF 23 MM OF MERCURY. The left ventricle is visualized and demonstrated adequate motion of all the segments. Estimated global left ventricular ejection fraction between 55 to 60%. The left ventricular thickness is normal. The mitral valve is seen and this opens adequately. There is trace mitral regurgitation. Left atrium is normal. The aortic valve opens adequately. There is no significant gradient across the left ventricular outflow tract. The right side chambers are normal with normal right ventricular contractility. There is trace tricuspid regurgitation. The right ventricular systolic pressure of 23 mm of Mercury.
== END 2023-08-26 14:33 | disposition home or self-care (01) ==
LOC: ED 22:11 → MED SURG 08-26 01:44
PROVIDERS: ADMIT Student in an Organized Health Care Education/Training Program; ATTEND Student in an Organized Health Care Education/Training Program
DX: R20.0 Anesthesia of skin (principal); F17.200 Nicotine dependence, unspecified, uncomplicated; G43.909 Migraine, unspecified, not intractable, without status migrainosus; F32.A Depression, unspecified; R20.2 Paresthesia of skin; R53.1 Weakness
CPT/HCPCS: 36000; 36415; 70450; 70544; 70547; 70553; 73221; 80053; 80061; 83721; 84484; 85025; 93005; 93041; 93306; 94760; Q3014; 93268; 99285; A9270-GY; G0378

== ENCOUNTER 2023-10-03 22:28 | Emergency (ER) | payer OTHER ==
--- NOTE | 2023-10-03 22:51 | ERPHSYRPT ---
- History of Present Illness Time Seen by Provider: 10/03/23 22:40 Historian: patient Exam Limitations: no limitations Patient Subjective Stated Complaint: C/O chest pain that started tonight after taking a shower at home. Triage Nursing Assessment: Patient arrived to ER by ambulance. He is alert and oriented. No SOB. No cough. Skin tone normal. MCKEON WNL. No edema. Physician History: 43yo m presents to ED via EMS for cp that began roughly 1h ICU CLERK. Pt states he had just come out of the shower and was sitting down to smoke a cigarette when he began to have retrosternal cp that did not radiate and felt like a burning s ensation. Pt denies any n/v, diaphoresis, sob, epigastric pain. Pt denies any use of alcohol or illicit drugs today. 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 Timing/Duration: today Activities at Onset: rest Quality: burning Location: substernal Chest Pain Radiation: no radiation Severity of Pain-Max: mild Severity of Pain-Current: mild Modifying Factors: Improves With: nothing Associated Symptoms: No denies symptoms Nitro Today/Relief: 0.4 mg x 1, provided by EMS Aspirin Treatment Today: 325 mg x 1, provided by EMS Allergies/Adverse Reactions: No Known Drug Allergies Allergy (Verified 10/03/23 23:42) Home Medications: No Reportable Medications [No Reported Medications] 12/26/21 [History] Hx Tetanus, Diphtheria Vaccination/Date Given: No Hx Influenza Vaccination/Date Given: No Hx Pneumococcal Vaccination/Date Given: No Immunizations Up to Date: No Travel Risk - International Travel Have you traveled outside of the country in past 3 weeks: No - Emerging Infectious Disease Are you exhibiting symptoms associated with any current EIDs: No - Review of Systems Constitutional: No Symptoms Respiratory: No Symptoms, No Dyspnea, No Stridor, No Wheezing Cardiac: Chest Pain, No Edema, No Palpitations, No Syncope Abdominal/Gastrointestinal: No Symptoms - Past Medical History Pertinent Past Medical History: Yes Neurological History: Migraines ENT History: No Pertinent History Cardiac History: No Pertinent History Respiratory History: No Pertinent History Endocrine Medical History: No Pertinent History Musculoskeletal History: No Pertinent History GI Medical History: No Pertinent History History: Other Psycho-Social History: Depression Male Reproductive Disorders: No Pertinent History Other Medical History: recently dx with HPV virus - Past Surgical History Past Surgical History: No Neuro Surgical History: No Pertinent History Cardiac: No Pertinent History Respiratory: No Pertinent History Gastrointestinal: No Pertinent History Genitourinary: No Pertinent History Musculoskeletal: No Pertinent History Male Surgical History: No Pertinent History Other Surgical History: never been put under ortho surg to finger but done with block Significant Family History: no pertinent family hx - Social History Smoking Status: Current every day smoker How long have you smoked: 16 y.o. Exposure to second hand smoke: Yes Drug Use: other Patient Lives Alone: No - Social Determinants of Health Will the patient participate in the screening: Yes Do you worry about a steady place to live?: No Do you have any problems with any of the following?: No known problems In the past 12 months,have you had to go without utilities?: No Transportation Issues: No Has anyone in your support network made you feel unsafe?: No Have you or anyone in your house had to go without enough: No - Nursing Vital Signs Nursing Vital Signs: Initial Vital Signs Pulse Rate 75 10/03/23 22:32 Respiratory Rate 17 10/03/23 22:32 Blood Pressure 106/69 10/03/23 22:32 O2 Sat by Pulse Oximetry 98 10/03/23 22:32 Pain Scale Pain Intensity 0 - Physical Exam General Appearance: no apparent distress, alert Respiratory Exam: normal breath sounds, lungs clear, airway intact, No chest tenderness, No respiratory distress Cardiovascular Exam: regular rate/rhythm, normal heart sounds, No edema Gastrointestinal/Abdomen Exam: soft, No tenderness, No distention Neurologic Exam: alert, oriented x 3, cooperative Skin Exam: normal color, warm, dry SpO2 Interpretation: normal SpO2: 98 O2 Delivery: Room Air - Course EKG Interpreted by Me: RATE (69), Sinus Rhythm, Non-specific ST Changes (qtcb [id number], not suggestive of acute ischemia) Ordered Tests: Active Orders 24 hr Category Date Time Status AMA [Release AMA] OM.NOW Care 10/03/23 23:44 Completed CHEST 1 VIEW (PORTABLE) Stat Exams 10/03/23 22:38 Taken CBC W DIFF Stat Lab 10/03/23 22:53 Completed CMP Stat Lab 10/03/23 22:53 Completed TROPONIN Q4H Lab 10/03/23 22:53 Completed Lab/Rad Data: Laboratory Result Diagrams 10/03/23 22:53 10/03/23 22:53 Laboratory Results 10/03/23 10/03/23 10/03/23 Range/Units 22:53 22:53 22:53 WBC 6.1 (4.23-9.07) x10^3/uL RBC 3.89 L (4.63-6.08) x10^6/uL Hgb 12.2 L (13.7-17.5) g/dL Hct 35.1 L (40.1-51.0) % MCV 90.2 (79.0-92.2) fL MCH 31.4 (25.7-32.2) pg MCHC 34.8 (32.3-36.5) g/dL RDW 13.4 (11.6-14.4) % Plt Count 204 (163-337) x10^3/uL MPV 9.7 (9.4-12.4) fL Gran % 52.1 (34.0-67.9) % Immature Gran % (Auto) 0.2 (0.001-0.429) % Nucleat RBC Rel Count 0.0 (0.00-0.2) % Eos # (Auto) 0.13 (0.04-0.54) x10^3/uL Immature Gran # (Auto) 0.01 (0.001-0.031) x10^3u/L Absolute Lymphs (auto) 2.10 (1.32-3.57) x10^3/uL Absolute Monos (auto) 0.65 (0.30-0.82) x10^3/uL Absolute Nucleated RBC 0.00 (0.00-0.012) x10^3u/L Lymphocytes % 34.2 (21.8-53.1) % Monocytes % 10.6 (5.3-12.2) % Eosinophils % 2.1 (0.8-7.0) % Basophils % 0.8 (0.2-1.2) % Absolute Granulocytes 3.20 (1.78-5.38) x10^3/uL Basophils # 0.05 (0.01-0.08) x10^3/uL Sodium 135 (135-145) mmol/L Potassium 2.9 L* (3.5-5.1) mmol/L Chloride 107 (98-107) mmol/L Carbon Dioxide 22 (22-30) mmol/L Anion Gap 8.2 (5-15) MEQ/L BUN 12 (9-20) mg/dL Creatinine 0.69 (0.66-1.25) mg/dL Estimated GFR 119.2 ML/MIN Glucose 154 H (74-106) mg/dL Calcium 8.5 (8.4-10.2) mg/dL Total Bilirubin 0.40 (0.2-1.3) mg/dL AST 32 (17-59) U/L ALT 27 (0-50) U/L Alkaline Phosphatase 69 (38-126) U/L Troponin I < 0.012 (0.000-0.033) ng/mL Serum Total Protein 5.9 L (6.3-8.2) g/dL Albumin 3.5 (3.5-5.0) g/dL - Progress Progress: improved Air Movement: good Progress Note: pt reported feeling better before w/u was completed, decided to leave AMA discussed risks of leaving before w/u was complete, including risk of pt reported that he was aware of the risks of leaving hospital, voiced underst anding of the complexity of his current medical state, deemed to have capacity to make his own medical decisions pt was given AMA paperwork and left ED pt hypokalemic at 2.9, lab work and ekg otherwise largely unremarkable, pt refused treatment and wanted to leave ED 10/04/23 03:25 10/04/23 03:26 Blood Culture(s) Obtained: No Antibiotics given: No - Departure Departure Disposition: AMA Clinical Impression: Hypokalemia Chest pain Qualifiers: Chest pain type: unspecified Qualified Code(s): R07.9 - Chest pain, unspecified Condition: Stable Critical Care Time: No Referrals: MANAV SIMMS [Primary Care Provider] - Follow up/PCP as directed
[2023-10-03 22:56] LABS: BASOPHIL % 0.8 % (0.2-1.2); Basophil (Absolute #) 0.05 x10^3/uL (0.01-0.08); Eosinophil % 2.1 % (0.8-7.0); Eosinophil (Absolute #) 0.13 x10^3/uL (0.04-0.54); Hematocrit 35.1 % (40.1-51.0); Hemoglobin 12.2 g/dL (13.7-17.5); IMMATURE GRAN # 0.01 x10^3u/L (0.001-0.031); IMMATURE GRAN % 0.2 % (0.001-0.429); Lymphocytes % 34.2 % (21.8-53.1); Mean Cell Volume 90.2 fL (79.0-92.2); Mean Corpuscular Hemoglobin 31.4 pg (25.7-32.2); Mean Corpuscular Hgb Concent. 34.8 g/dL (32.3-36.5); Mean Platelet Volume 9.7 fL (9.4-12.4); Monocyte (Absolute #) 0.65 x10^3/uL (0.30-0.82); Monocytes % 10.6 % (5.3-12.2); Neutrophil % 52.1 % (34.0-67.9); Platelet Count 204 x10^3/uL (163-337); Red Blood Count 3.89 x10^6/uL (4.63-6.08); Red Cell Distribution Width 13.4 % (11.6-14.4); White Blood Count 6.1 x10^3/uL (4.23-9.07)
[2023-10-03 23:16] LABS: ALBUMIN 3.5 g/dL (3.5-5.0); ANION GAP 8.2 MEQ/L (5-15); BILIRUBIN,TOTAL 0.4 mg/dL (0.2-1.3); Calcium 8.5 mg/dL (8.4-10.2); Creatinine 1 0.69 mg/dL (0.66-1.25); EST GLOMERULAR FILTRATION RATE 119.2 ML/MIN; Total Protein 5.9 g/dL (6.3-8.2)
[2023-10-03 23:23] LABS: Potassium 2.9 mmol/L (3.5-5.1)
[2023-10-03 23:40] VITALS: BP 104/71; PULSE 78; RESP 24
[2023-10-04 03:22] VITALS: O2SAT 98
--- NOTE | 2023-10-04 08:39 | XRAY ---
Indication: Chest pain. Comparison: None Portable chest demonstrates normal heart and lungs. Bony thorax intact with incidental bilateral nipple shadows.
== END 2023-10-03 23:47 | disposition left against medical advice (07) ==
LOC: ED 22:28
DX: E87.6 Hypokalemia (principal); R07.9 Chest pain, unspecified; Z72.0 Tobacco use
CPT/HCPCS: 36415; 71045; 80053; 84484; 85025; 99283

== ENCOUNTER 2025-01-23 18:03 | Emergency (ER) | payer OTHER ==
[2025-01-23 18:24] VITALS: TEMP 97.3
--- NOTE | 2025-01-23 18:54 | ERPHSYRPT ---
- History of Present Illness Time Seen by Provider: 01/23/25 18:50 Source: patient Exam Limitations: no limitations Patient Subjective Stated Complaint: patient walkedinto the ED he has what he thinks is spider bite to his left chest Triage Nursing Assessment: patient walked into ED with steady gait, ambulates by self. skin warm dry and itnact, patietn states he woke up yesterday with this bite to his left nipple. patient is alert and orietnedx4, skin warm dry and itnact does have circular area reddened and swollen right up against the left nipple. Physician History: Patient is a 44-year-old male current smoker history of migraine headaches and depression presents to our ED for evaluation of a spider bite to his left areola. Patient states he has spiders at home. Patient awoke yesterday morning with the area tender and swollen. The tenderness and swelling has gotten progressively worse over the past 24 hours. No systemic manifestation. No fever. No nausea no vomiting no diarrhea no rash. Registration documented dizziness but patient denies dizziness to staff. No chest pain. No shortness of breath. Patient otherwise feels well. He voices no other complaints or concerns at this time. Patient declined pain medication. Portions of this note were created with voice recognition technology. There may be grammatical, spelling, punctuation or sound alike errors Timing/Duration: yesterday Severity: moderate Associated Symptoms: denies symptoms Allergies/Adverse Reactions: No Known Drug Allergies Allergy (Verified 01/23/25 18:13) Hx Tetanus, Diphtheria Vaccination/Date Given: No Hx Influenza Vaccination/Date Given: No Hx Pneumococcal Vaccination/Date Given: No Travel Risk - International Travel Have you traveled outside of the country in past 3 weeks: No - Emerging Infectious Disease Are you exhibiting symptoms associated with any current EIDs: No - Review of Systems All Other Systems: Reviewed and Negative - Past Medical History Pertinent Past Medical History: Yes Neurological History: Migraines ENT History: No Pertinent History Cardiac History: No Pertinent History Respiratory History: No Pertinent History Endocrine Medical History: No Pertinent History Musculoskeletal History: No Pertinent History GI Medical History: No Pertinent History History: Other Psycho-Social History: Depression Male Reproductive Disorders: No Pertinent History Other Medical History: recently dx with HPV virus - Past Surgical History Past Surgical History: No Neuro Surgical History: No Pertinent History Cardiac: No Pertinent History Respiratory: No Pertinent History Gastrointestinal: No Pertinent History Genitourinary: No Pertinent History Musculoskeletal: No Pertinent History Male Surgical History: No Pertinent History Other Surgical History: never been put under ortho surg to finger but done with block Significant Family History: no pertinent family hx - Social History Smoking Status: Current every day smoker How long have you smoked: 16 y.o. Exposure to second hand smoke: Yes Drug Use: none, other - Social Determinants of Health Will the patient participate in the screening: Yes Do you worry about a steady place to live?: No Do you have any problems with any of the following?: No known problems In the past 12 months,have you had to go without utilities?: No Transportation Issues: No Has anyone in your support network made you feel unsafe?: No Have you or anyone in your house had to go w/o enough food: No - Nursing Vital Signs Nursing Vital Signs: Initial Vital Signs Temperature 97.3 F 01/23/25 18:04 Pulse Rate 100 H 01/23/25 18:04 Respiratory Rate 20 01/23/25 18:04 O2 Sat by Pulse Oximetry 98 01/23/25 18:04 Pain Scale Pain Intensity 4 - Physical Exam General Appearance: no apparent distress, alert Eye Exam: PERRL/EOMI, eyes nml inspection Ears, Nose, Throat Exam: normal ENT inspection, moist mucous membranes Neck Exam: normal inspection, full range of motion Respiratory Exam: normal breath sounds, lungs clear, airway intact, No respiratory distress Cardiovascular Exam: regular rate/rhythm, normal heart sounds, normal peripheral pulses Gastrointestinal/Abdomen Exam: soft, normal bowel sounds, No tenderness, No mass Back Exam: normal inspection, normal range of motion, No CVA tenderness, No vertebral tenderness Extremity Exam: normal inspection, normal range of motion, pelvis stable Neurologic Exam: alert, oriented x 3, cooperative, normal mood/affect, sensation nml, No motor deficits Skin Exam: normal color, warm, dry, other (Cellulitis at left areola. No open or draining lesions. No lymphangitis. No localized or axillary lymphadenopathy.), No rash Lymphatic Exam: No adenopathy SpO2 Interpretation: normal SpO2: 98 O2 Delivery: Room Air - Course Nursing assessment & vital signs reviewed: Yes Ordered Tests: Medication Summary Discontinued Medications Generic Name Dose Route Start Last Admin Trade Name Freq PRN Reason Stop Dose Admin Ceftriaxone Sodium 1,000 mg 01/23/25 18:49 01/23/25 18:58 Ceftriaxone Sodium 1000 Mg Inj Vial IM 01/23/25 18:50 1,000 mg STAT ONE Administration Ceftriaxone Sodium Confirm 01/23/25 18:57 Ceftriaxone Sodium 1000 Mg Inj Vial Administered 01/23/25 18:58 Dose 1,000 mg .ROUTE .STK-MED ONE Diphtheria/Tetanus/Acell Pertussis 0.5 ml 01/23/25 18:49 Tdap --Diph,Pertuss(Acell),Tet Vac/Pf 0.5 Ml Vial IM 01/23/25 18:50 .ONCE ONE Ketorolac Tromethamine 30 mg 01/23/25 19:00 Ketorolac Tromethamine 30 Mg/Ml Inj IM 01/23/25 19:01 STAT ONE Lidocaine HCl Confirm 01/23/25 18:57 Lidocaine Hcl 1% 20 Ml Mdv 20 Ml Ml Administered 01/23/25 18:58 Dose 3 ml .ROUTE .STK-MED ONE - Progress Progress: improved Progress Note: Patient is a 44-year-old male presents to our ED for evaluation of a potential spider bite to his left areola. The area is red swollen and tender. No lymphadenopathy. No drainage. Patient's tetanus is outdated. Patient received a tetanus update in our ED. He also received IM dose of Rocephin. A prescription for Bactrim forwarded to patient's pharmacy. Patient agrees to follow-up with his primary care doctor within 48 hours for reevaluation. Patient otherwise feels well. He voices no other complaints or concerns at this time. Patient agrees to follow-up with his primary care doctor within 48 hours for reevaluation. At discharge patient requested pain medication. IM Toradol ordered and administered. Portions of this note were created with voice recognition technology. There may be grammatical, spelling, punctuation or sound alike errors History obtained from patient. Diagnosis includes cellulitis, abscess, breast mass Complexity of problems addressed is moderate acute complicated. No critical care time. Complex of data reviewed and analyzed is none. No specialized testing ordered. Diagnosis made based on history and physical exam. Risk of complication and or risk of morbidity/mortality of patient management is low. Vital stable. Time spent to discharge patient approximately 10 minutes. Plan of care established for shared decision making. No social determinants of health present to impede follow-up. Portions of this note were created with voice recognition technology. There may be grammatical, spelling, punctuation or sound alike errors 01/23/25 18:57 Counseled pt/family regarding: diagnosis, need for follow-up - Departure Departure Disposition: Home Clinical Impression: Spider bite, Cellulitis Condition: Stable Critical Care Time: No Referrals: MANAV SIMMS [Primary Care Provider, [facility]] - Follow up/PCP as directed Additional Instructions: Please follow-up with your primary care doctor within 48 hours for reassessment Discharge/Care Plan TEN MEYERS was seen on 01/23/25 in the Emergency Room. The patient was counseled regarding Diagnosis,Lab results, Imaging studies, need for follow up and when to return to the Emergency Room. Prescriptions given: Discharge Note I have spoken with the patient and/or caregivers. I have explained the patient's condition, diagnosis and treatment plan based on the information available to me at this time. I have answered the patient's and/or caregiver's questions and add ressed any concerns. The patient and/or caregivers have as good understanding of the patient's diagnosis, condition and treatment plan as can be expected at this point. The vital signs have been stable. The patient's condition is stable and appropriate for discharge from the emergency department. The patient will pursue further outpatient evaluation with the primary care physician or other designated or consulting physician as outlined in the discharge instructions. The patient and/or caregivers are agreeable to this plan of care and follow-up instructions have been explained in detail. The patient and/or caregivers have received these instruction. The patient/and or caregivers are aware that any significant change in condition or worsening of symptoms should prompt an immediate return to this or the closest emergency department or call 911. Prescriptions: Smz/Tmp Ds Tablet [Bactrim Ds Tablet] 1 udtab PO BID #14 tablet Ketorolac Trometh 10 mg Tab [TORAdol 10 MG TABLET] 10 mg PO TID 5 Days #15 tablet
[2025-01-23] MEDS ORDERED: XYLOCAINE 1% HCL 20 ML MDV ONE (18:57)
[2025-01-23] MEDS ORDERED: Rocephin 1000 MG INJ ONE (18:57)
[2025-01-23] MEDS: Rocephin 1000 MG INJ IM ONE (18:58)
[2025-01-23] MEDS ORDERED: Adacel Vial IM ONE (19:06)
[2025-01-23] MEDS ORDERED: TORAdol 30 mg Injection ONE (19:06)
[2025-01-23] MEDS: TORAdol 30 mg Injection IM ONE (19:07)
[2025-01-23] MEDS: Adacel Vial IM ONE (19:08)
[2025-01-23 19:33] VITALS: BP 147/93; PULSE 92; RESP 18; O2SAT 99
== END 2025-01-23 19:32 | disposition home or self-care (01) ==
LOC: ED 18:03
DX: S20.162A Insect bite (nonvenomous) of breast, left breast, initial encounter (principal); N61.0 Mastitis without abscess; Z79.899 Other long term (current) drug therapy; Z72.0 Tobacco use; Z23 Encounter for immunization